=== PATIENT | female | born 1970 | race Caucasian/White ===

== ENCOUNTER 2017-02-08 12:13 | Inpatient (IN) | payer OTHER ==
[~2017-02-08] VITALS: Ht 170.2 cm; Wt 91.0 kg
[~2017-02-08 12:13] MED LIST: MULT1TAB46; OMEP20TA39 PO; ONDA1TAB16 PO; PERC10TA27 PO
[2017-02-08 12:18] VITALS: BP 163/75; PULSE 77; RESP 18; TEMP 98.2; O2SAT 98
--- NOTE | 2017-02-08 12:21 | PD ---
Physical Exam Date Seen by Provider: Feb 08, 2017 Time Seen by Provider: 12:17 Narrative Pt is a 46 year old female presenting to the ED for evaluation epigastric abd pain radiates to her chest and back. Pt reports her pain as a 9/10. Pain is accompanied by nausea and vomiting. Symptoms started at 1300 yesterday. Similar complaint a few months ago and was evaluated in the ED, pt states she had a mild ileus at that time. She reports regular bowel movements. Pt denies any fevers, chills. VSS, awaiting bed placement. MDM Supervised Visit with AIDEE: Kathrin Persaud Feb 08, 2017 12:21
--- NOTE | 2017-02-08 12:42 | PD ---
HPI Chief Complaint: Abdominal Pain Time Seen by Provider: 12:42 Travel History International Travel<30 days: No Contact w/Intl Traveler<30days: No Traveled to known affect area: No History of Present Illness HPI 46-year-old female with history of CAD, gastric bypass in 2010, iron deficiency , anemia, resents to the the emergency department today for evaluation of epigastric pain that radiates to her back. Patient states this started yesterday after eating lunch. It has persisted. She has history of cholecystectomy. She has been nauseous with vomiting. Has had loose stool. No hematochezia or hematemesis. No fever or chills. Patient denies any chest pain or shortness of breath. Cannot think of any alleviating or exacerbating factors. She has no other symptoms to report at this time. PFSH Past Medical History Anemia: Yes (LOW IRON) Blood Disorders: No Cancer: No Cardiac Catheterization: Yes (X 1 - NO STENTS PLACED) Cardiovascular Problems: Yes (CARDIAC CATH) Diabetes: No Diminished Hearing: No Endocrine: No Gastrointestinal Disorders: No Glaucoma: No Genitourinary: No Hepatitis: No Hiatal Hernia: No Hypertension: Yes (HISTORY OF) Immune Disorder: No Implanted Vascular Access Dvce: No Musculoskeletal: Yes (HERNIATED DISK LUMBAR) Neurologic: No Psychiatric: No Reproductive: No Respiratory: No Immunizations Current: No Thyroid Disease: No ?: Not : 4 Para: 4 Miscarriage: 0 : 0 Tubal Ligation: Yes Past Surgical History Abdominal Surgery: Yes ( GASTRIC BYPASS 11/03/2010) AICD: No Body Medical Devices: NONE Cardiac Surgery: Yes (CARDIAC CATH 2013 WITHIN NORMAL LIMITS) Section: Yes (X 2) Cholecystectomy: Yes (03/03/11) Ear Surgery: No Endocrine Surgery: No Eye Surgery: No Genitourinary Surgery: No Gynecologic Surgery: Yes (C SECTION X 2, TUBAL LIG.) Hysterectomy: Yes Joint Replacement: No Neurologic Surgery: No Oral Surgery: No Pacemaker: No Thoracic Surgery: No Other Surgery: Yes (GASTRIC BYPASS 11/03/2010) Social History Alcohol Use: No Tobacco Use: No Substance Use: No Allergies-Medications (Allergen,Severity, Reaction): Coded Allergies: No Known Allergies (Unverified , 02/08/17) Reported Meds & Prescriptions Reported Meds & Active Scripts Active Reported Multiple Vitamin 1 Tab 1 Tab PO DAILY Review of Systems Except as stated in HPI: all other systems reviewed are Neg Physical Exam Narrative GENERAL: Well-nourished female patient, appears uncomfortable but in no acute distress SKIN: Focused skin assessment warm/dry. HEAD: Atraumatic. Normocephalic. EYES: Pupils equal and round. No scleral icterus. No injection or drainage. ENT: No nasal bleeding or discharge. Mucous membranes pink and moist. NECK: Trachea midline. No JVD. CARDIOVASCULAR: Regular rate and rhythm. No murmur appreciated. RESPIRATORY: No accessory muscle use. Clear to auscultation. Breath sounds equal bilaterally. GASTROINTESTINAL: Abdomen soft, non-tender, nondistended. Hepatic and splenic margins not palpable. MUSCULOSKELETAL: No obvious deformities. No clubbing. No cyanosis. No edema. NEUROLOGICAL: Awake and alert. No obvious cranial nerve deficits. Motor grossly within normal limits. Normal speech. PSYCHIATRIC: Appropriate mood and affect; insight and judgment normal. Data Data Last Documented VS Vital Signs Date Time Temp Pulse Resp B/P Pulse Ox O2 Delivery O2 Flow Rate FiO2 02/08/17 15:05 70 18 155/94 98 Room Air 02/08/17 12:18 98.2 Orders Complete Blood Count With Diff (02/08/17 12:52) Comprehensive Metabolic Panel (02/08/17 12:52) Lipase (02/08/17 12:52) Prothrombin Time / Inr (Pt) (02/08/17 12:52) Act Partial Throm Time (Ptt) (02/08/17 12:52) Urinalysis - C+S If Indicated (02/08/17 12:52) Ct Abd/Pel W Iv Contrast(Rout) (02/08/17 12:52) Iv Access Insert/Monitor (02/08/17 12:52) Ecg Monitoring (02/08/17 12:52) Oximetry (02/08/17 12:52) Ondansetron Inj (Zofran Inj) (02/08/17 13:00) Pantoprazole Inj (Protonix Inj) (02/08/17 13:00) Sodium Chlor 0.9% 1000 Ml Inj (Ns 1000 M (02/08/17 12:52) Sodium Chloride 0.9% Flush (Ns Flush) (02/08/17 13:00) Electrocardiogram (02/08/17 12:52) Al-Mag Hy-Si 40-40-4 Mg/Ml Liq (Mag-Al P (02/08/17 13:00) Lidocaine 2% Viscous (Xylocaine 2% Visco (02/08/17 13:00) Iohexol 350 Inj (Omnipaque 350 Inj) (02/08/17 14:04) Ckmb (Isoenzyme) Profile (02/08/17 13:15) Troponin I (02/08/17 13:15) Morphine Inj (Morphine Inj) (02/08/17 15:00) Admit Order (Ed Use Only) (02/08/17 15:27) Labs Laboratory Tests Test 02/08/17 02/08/17 13:15 14:00 White Blood Count 6.3 TH/MM3 Red Blood Count 4.10 MIL/MM3 Hemoglobin 11.9 GM/DL Hematocrit 34.8 % Mean Corpuscular Volume 84.7 FL Mean Corpuscular Hemoglobin 28.9 PG Mean Corpuscular Hemoglobin 34.1 % Concent Red Cell Distribution Width 14.0 % Platelet Count 305 TH/MM3 Mean Platelet Volume 7.3 FL Neutrophils (%) (Auto) 64.6 % Lymphocytes (%) (Auto) 27.2 % Monocytes (%) (Auto) 6.8 % Eosinophils (%) (Auto) 0.9 % Basophils (%) (Auto) 0.5 % Neutrophils # (Auto) 4.1 TH/MM3 Lymphocytes # (Auto) 1.7 TH/MM3 Monocytes # (Auto) 0.4 TH/MM3 Eosinophils # (Auto) 0.1 TH/MM3 Basophils # (Auto) 0.0 TH/MM3 CBC Comment DIFF FINAL Differential Comment Prothrombin Time 11.0 SEC Prothromb Time International 1.0 RATIO Ratio Activated Partial 25.8 SEC Thromboplast Time Sodium Level 142 MEQ/L Potassium Level 3.5 MEQ/L Chloride Level 107 MEQ/L Carbon Dioxide Level 26.8 MEQ/L Anion Gap 8 MEQ/L Blood Urea Nitrogen 12 MG/DL Creatinine 0.67 MG/DL Estimat Glomerular Filtration 95 ML/MIN Rate Random Glucose 99 MG/DL Calcium Level 8.7 MG/DL Total Bilirubin 0.2 MG/DL Aspartate Amino Transf 25 U/L (AST/SGOT) Alanine Aminotransferase 45 U/L (ALT/SGPT) Alkaline Phosphatase 68 U/L Total Creatine Kinase 64 U/L Troponin I LESS THAN 0.02 NG/ML Total Protein 6.7 GM/DL Albumin 3.4 GM/DL Lipase 196 U/L Urine Color LIGHT-YELLOW Urine Turbidity CLEAR Urine pH 7.0 Urine Specific [place] 1.007 Urine Protein NEG mg/dL Urine Glucose (UA) NEG mg/dL Urine Ketones NEG mg/dL Urine Occult Blood NEG Urine Nitrite NEG Urine Bilirubin NEG Urine Urobilinogen LESS THAN 2.0 MG/DL Urine Leukocyte Esterase NEG Urine WBC 1 /hpf Urine Squamous Epithelial 2 /hpf Cells Urine Bacteria RARE /hpf Microscopic Urinalysis Comment CULT NOT INDICATED MDM Medical Decision Making Medical Screen Exam Complete: Yes Emergency Medical Condition: Yes Medical Record Reviewed: Yes Differential Diagnosis Gastritis versus ileus versus pancreatitis versus PUD versus ACS versus chest wall pain Narrative Course 46-year-old female presents to the emergency department for evaluation of epigastric pain. Patient does appear uncomfortable. She has no abdominal tenderness to palpation. No guarding. Cardiac workup is added in addition to abdominal pain workup. She is given GI cocktail and pain control. 1400 Upon reassessment pt reports mild improvement in her pain but is requesting to my attending additional pain control. 1410 A call has been placed to Dr. Rosen for further recommendation of care. [address] Rosen- he will come to the ED and evaluate the pt. 1515 Dr. Rosen is at bedside. 1525 Pt will be admitted observation to Dr. Rosen. Plan for endoscopy Diagnosis Primary Impression: Intractable abdominal pain Additional Impressions: Nausea & vomiting Qualified Code: R11.2 - Non-intractable vomiting with nausea, unspecified vomiting type History of gastric bypass Admitting Information Admitting Physician Requests: Observation Condition: Stable Hilda Marques Feb 08, 2017 12:42
[2017-02-08] MEDS ORDERED: SODIUM CHLOR 0.9% 1000 ML INJ 1,000 ML IV SCH (12:52)
[2017-02-08] MEDS ORDERED: ONDANSETRON HCL 4 MG/2 ML VIAL IVP ONE (13:00)
[2017-02-08] MEDS ORDERED: PANTOPRAZOLE SODIUM 40 MG VIAL IVP ONE (13:00)
[2017-02-08] MEDS ORDERED: LIDOCAINE VISCOUS 2% SOLN 15 ML UDC PO ONE (13:00)
[2017-02-08] MEDS ORDERED: SODIUM CHLORIDE 0.9% FLUSH 10 ML FLUSH IV FLUSH PRN ×2 (13:00→17:00)
[2017-02-08] MEDS ORDERED: ALUMINUM/MAGNESIUM/SIMETH 30 ML CUP PO ONE (13:00)
[2017-02-08] MEDS ORDERED: MULTTAB67 PO (13:19)
[2017-02-08 13:25] LABS: AUTOMATED NEUTROPHIL # 4.1 TH/MM3 (1.8-7.7); BASOPHIL % 0.5 % (0.0-2.0); EOSINOPHIL # 0.1 TH/MM3 (0-0.4); EOSINOPHIL % 0.9 % (0.0-4.0); HEMATOCRIT 34.8 % (35.0-46.0); HEMO FLAGS DIFF FINAL; LYMPH % 27.2 % (9.0-44.0); LYMPHOCYTE # 1.7 TH/MM3 (1.0-4.8); MEAN CELL VOLUME 84.7 FL (80.0-100.0); MEAN CORPUSCULAR HEMOGLOBIN 28.9 PG (27.0-34.0); MEAN CORPUSCULAR HGB CONC 34.1 % (32.0-36.0); MONO % 6.8 % (0.0-8.0); NEUT % 64.6 % (16.0-70.0); PLATELET COUNT 305 TH/MM3 (150-450); WHITE BLOOD COUNT 6.3 TH/MM3 (4.0-11.0)
[2017-02-08 13:35] LABS: APTT (PATIENT) 25.8 SEC (24.3-30.1)
[2017-02-08 13:39] LABS: ANION GAP 8 MEQ/L (5-15); AST (GOT) 25 U/L (15-37); BICARBONATE 26.8 MEQ/L (21.0-32.0); BLOOD UREA NITROGEN 12 MG/DL (7-18); CHLORIDE 107 MEQ/L (98-107); GLOMERULAR FILTRATION RATE 95 ML/MIN (>89); POTASSIUM 3.5 MEQ/L (3.5-5.1); SODIUM (NA) 142 MEQ/L (136-145)
[2017-02-08 13:43] LABS: ALKALINE PHOSPHATASE 68 U/L (45-117); ALT (GPT) 45 U/L (10-53); TOTAL BILIRUBIN ADULT 0.2 MG/DL (0.2-1.0)
[2017-02-08] MEDS ORDERED: IOHEXOL 350 MG/ML 10 ML VIAL (for RAD DIAG) IV ONE (14:04)
--- NOTE | 2017-02-08 14:17 | RADRPT ---
EXAM DATE/TIME: 02/08/2017 13:57 [facility] COMPARISON: CT ABDOMEN & PELVIS W CONTRAST, March 14, 2016, 16:42. INDICATIONS : Upper diffuse abdomen pain for the last two days. IV CONTRAST: 92 cc Omnipaque 350 (iohexol) IV ORAL CONTRAST: No oral contrast ingested. RADIATION DOSE: 12.51 CTDIvol (mGy) MEDICAL HISTORY : Cardiovascular disease. Hypertension. SURGICAL HISTORY : Tubal ligation. Hysterectomy.Gastric bypass. ENCOUNTER: Initial ACUITY: 2 days PAIN SCALE: 8/10 LOCATION: Bilateral upper quadrant TECHNIQUE: Volumetric scanning of the abdomen and pelvis was performed. Using automated exposure control and ad justment of the mA and/or kV according to patient size, radiation dose was kept as low as reasonably achievable to obtain optimal diagnostic quality images. FINDINGS: LOWER LUNGS: The visualized lower lungs are clear. LIVER: Homogeneous density without lesion. There is no dilation of the biliary tree. Status post cholecyste ctomy. SPLEEN: Normal size without lesion. PANCREAS: Within normal limits. KIDNEYS: Normal in size and shape. There is no mass, stone or hydronephrosis. ADRENAL GLANDS: Degenerative versus stable in appearance with mild thickening and nodularity on the left. VASCULAR: There is no aortic aneurysm. BOWEL/MESENTERY: There are postoperative changes status post gastric surgery. There are multiple loops of nondilated a ir-containing small bowel with multiple small air-fluid levels. Gas and stool is noted segmentally in the colon. There is a normal appendix. There is no free air or fluid. No oral contrast was given. ABDOMINAL WALL: Within normal limits. RETROPERITONEUM: There is no lymphadenopathy. BLADDER: No wall thickening or mass. REPRODUCTIVE: Within normal limits. INGUINAL: There is no lymphadenopathy or hernia. MUSCULOSKELETAL: Within normal limits for patient age. CONCLUSION: 1. Nonspecific bowel gas pattern which may represent ileus or gastroenteritis. 2. Stable appearance the adrenal glands with nodular thickening on the left. 3. Status post gastric surgery and cholecystectomy. Cameron Dominguez MD on February 08, 2017 at 14:12 Board Certified Radiologist. This report was verified electronically.
[2017-02-08 14:28] LABS: CREATINE KINASE 64 U/L (26-192)
[2017-02-08 14:31] LABS: BACTERIA, URINE RARE /hpf; BLOOD, URINE NEG (NEG); COMMENT (UR) CULT NOT INDICATED; CULTURE IF INDICATED CULT NOT INDICATED; GLUCOSE,URINE NEG (NEG); KETONE, URINE NEG (NEG); NITRITE,URINE NEG (NEG); SQUAMOUS EPITHELIAL CELL URINE 2 /hpf (0-5); URINE COLOR LIGHT-YELLOW (YELLW/STRAW)
[2017-02-08] MEDS ORDERED: MORPHINE SULFATE 4 MG/ML INJ IV PUSH ONE (15:00)
[2017-02-08 15:05] VITALS: BP 155/94; PULSE 70; RESP 18; O2SAT 98
--- NOTE | 2017-02-08 16:32 | PD ---
Data Data Last Documented VS Vital Signs Date Time Temp Pulse Resp B/P Pulse Ox O2 Delivery O2 Flow Rate FiO2 02/08/17 15:14 20 02/08/17 15:05 70 155/94 98 Room Air 02/08/17 12:18 98.2 Orders Complete Blood Count With Diff (02/08/17 12:52) Comprehensive Metabolic Panel (02/08/17 12:52) Lipase (02/08/17 12:52) Prothrombin Time / Inr (Pt) (02/08/17 12:52) Act Partial Throm Time (Ptt) (02/08/17 12:52) Urinalysis - C+S If Indicated (02/08/17 12:52) Ct Abd/Pel W Iv Contrast(Rout) (02/08/17 12:52) Iv Access Insert/Monitor (02/08/17 12:52) Ecg Monitoring (02/08/17 12:52) Oximetry (02/08/17 12:52) Ondansetron Inj (Zofran Inj) (02/08/17 13:00) Pantoprazole Inj (Protonix Inj) (02/08/17 13:00) Sodium Chlor 0.9% 1000 Ml Inj (Ns 1000 M (02/08/17 12:52) Sodium Chloride 0.9% Flush (Ns Flush) (02/08/17 13:00) Electrocardiogram (02/08/17 12:52) Al-Mag Hy-Si 40-40-4 Mg/Ml Liq (Mag-Al P (02/08/17 13:00) Lidocaine 2% Viscous (Xylocaine 2% Visco (02/08/17 13:00) Iohexol 350 Inj (Omnipaque 350 Inj) (02/08/17 14:04) Ckmb (Isoenzyme) Profile (02/08/17 13:15) Troponin I (02/08/17 13:15) Morphine Inj (Morphine Inj) (02/08/17 15:00) Admit Order (Ed Use Only) (02/08/17 15:27) Labs Laboratory Tests Test 02/08/17 02/08/17 13:15 14:00 White Blood Count 6.3 TH/MM3 Red Blood Count 4.10 MIL/MM3 Hemoglobin 11.9 GM/DL Hematocrit 34.8 % Mean Corpuscular Volume 84.7 FL Mean Corpuscular Hemoglobin 28.9 PG Mean Corpuscular Hemoglobin 34.1 % Concent Red Cell Distribution Width 14.0 % Platelet Count 305 TH/MM3 Mean Platelet Volume 7.3 FL Neutrophils (%) (Auto) 64.6 % Lymphocytes (%) (Auto) 27.2 % Monocytes (%) (Auto) 6.8 % Eosinophils (%) (Auto) 0.9 % Basophils (%) (Auto) 0.5 % Neutrophils # (Auto) 4.1 TH/MM3 Lymphocytes # (Auto) 1.7 TH/MM3 Monocytes # (Auto) 0.4 TH/MM3 Eosinophils # (Auto) 0.1 TH/MM3 Basophils # (Auto) 0.0 TH/MM3 CBC Comment DIFF FINAL Differential Comment Prothrombin Time 11.0 SEC Prothromb Time International 1.0 RATIO Ratio Activated Partial 25.8 SEC Thromboplast Time Sodium Level 142 MEQ/L Potassium Level 3.5 MEQ/L Chloride Level 107 MEQ/L Carbon Dioxide Level 26.8 MEQ/L Anion Gap 8 MEQ/L Blood Urea Nitrogen 12 MG/DL Creatinine 0.67 MG/DL Estimat Glomerular Filtration 95 ML/MIN Rate Random Glucose 99 MG/DL Calcium Level 8.7 MG/DL Total Bilirubin 0.2 MG/DL Aspartate Amino Transf 25 U/L (AST/SGOT) Alanine Aminotransferase 45 U/L (ALT/SGPT) Alkaline Phosphatase 68 U/L Total Creatine Kinase 64 U/L Troponin I LESS THAN 0.02 NG/ML Total Protein 6.7 GM/DL Albumin 3.4 GM/DL Lipase 196 U/L Urine Color LIGHT-YELLOW Urine Turbidity CLEAR Urine pH 7.0 Urine Specific [place] 1.007 Urine Protein NEG mg/dL Urine Glucose (UA) NEG mg/dL Urine Ketones NEG mg/dL Urine Occult Blood NEG Urine Nitrite NEG Urine Bilirubin NEG Urine Urobilinogen LESS THAN 2.0 MG/DL Urine Leukocyte Esterase NEG Urine WBC 1 /hpf Urine Squamous Epithelial 2 /hpf Cells Urine Bacteria RARE /hpf Microscopic Urinalysis Comment CULT NOT INDICATED [facility] Supervised Visit with AIDEE: Yes Narrative Course The history, exam, and medical decision-making in the associated midlevel provider note were completed with my assistance. I reviewed and agree with the findings presented. I attest that I had a [id number] encounter with the patient on the same day, and personally performed and documented my assessment and findings in the medical record. *My assessment and Findings: This is a 46-year-old female who presents to the emergency department with epigastric discomfort with nausea and vomiting. Her history is consistent with possible gastric ulcer. She has a history of gastric bypass in the past by Dr. Rosen. Labs are reassuring and CT imaging demonstrates a possible ileus. Patient was seen by Dr. Rosen in the ER and will be taken for endoscopy Diagnosis Primary Impression: Intractable abdominal pain Additional Impressions: History of gastric bypass Nausea & vomiting Qualified Code: R11.2 - Non-intractable vomiting with nausea, unspecified vomiting type Condition: Stable Kacie Bruno MD Feb 08, 2017 16:32
--- NOTE | 2017-02-08 16:42 | GIPROC ---
[facility] [address] [facility]. [facility], [address] EGD PROCEDURE REPORT EXAM DATE: 02/08/2017 PATIENT NAME: Sanjana Pham MR #: [id number] BIRTHDATE: 1970 ATTENDING: Demetrius Vogt MD ORDER #: [id number] [employer] SUPERVISOR: Lucila Cannon Pat STATUS: inpatient INDICATIONS: The patient is a 46 yr old female here for an EGD due to epigastric abdominal pain and heartburn hx of ry gastric bypass PROCEDURE PERFORMED: EGD, diagnostic MEDICATIONS: None and Per Anesthesia. TOPICAL ANESTHETIC: none CONSENT: The patient understands the risks and benefits of the procedure and understands that these risks include, but are not limited to: sedation, allergic reaction, infection, perforation and/or bleeding. Alternative means of evaluation and treatment include, among others: physical exam, x-rays, and/or surgical intervention. The patient elects to proceed with this endoscopic procedure. medical equipment was checked for proper function. Hand hygiene and appropriate measures for infection prevention was taken. After the risks, benefits and alternatives of the procedure were thoroughly explained, Informed consent was verified, confirmed and timeout was successfully executed by the treatment team. The patient was anesthetized with topical anesthesia and the Pentax [id number] endoscope was introduced through the mouth and advanced to the anastomosis. No stricture noted. examination of blind limb and jejunal limb observed otherwise normal. Retroflexion was not performed The gastroscope was then slowly withdrawn and removed. Ulcer just distal to G-J anastomosis. ADVERSE EVENTS: There were no complications. IMPRESSIONS: 1. Ulcer just distal to G-J anastomosis 2. Retroflexion was not performed RECOMMENDATIONS: 1. Start PPI 2. Carafate avoid NSAID PATIENT CONDITION: fair DISPOSITION: Observation REPEAT EXAM: NONE Demetrius Vogt MD eSigned: Demetrius Vogt MD 02/08/2017 4:42 PM cc: Ok Rosen M.D.
[2017-02-08] MEDS ORDERED: PROPOFOL 200 MG/20 ML AMP IV ONE (16:45)
[2017-02-08] MEDS ORDERED: MORPHINE SULFATE 4 MG/ML INJ IV PUSH PRN (18:30)
[2017-02-08] MEDS: METOCLOPRAMIDE HCL 10 MG/2 ML VIAL IV PRN (18:32)
[2017-02-08] MEDS: SODIUM CHLOR 0.9% 1000 ML INJ 1,000 ML IV SCH (18:33)
[2017-02-08] MEDS: MORPHINE SULFATE 4 MG/ML INJ IV PUSH PRN (18:54)
[2017-02-08 20:00] VITALS: BP 106/62; PULSE 75; RESP 20; TEMP 97.7; O2SAT 98
[2017-02-08] MEDS: PANTOPRAZOLE SODIUM 40 MG VIAL IV SCH (21:08)
[2017-02-08] MEDS: SUCRALFATE 1 GM/10 ML CUP PO SCH (21:08)
[2017-02-08] MEDS: SODIUM CHLORIDE 0.9% FLUSH 10 ML FLUSH IV FLUSH SCH (21:14)
--- NOTE | 2017-02-08 21:36 | MB ---
cc: RADU MONTAÑO MD DATE OF CONSULTATION 02/08/17 CHIEF COMPLAINT/REASON FOR CONSULTATION Epigastric abdominal pain. HISTORY OF PRESENT ILLNESS The patient is a 46-year-old female who presents with several medical issues including morbid obesity status post gastric bypass in 2010. She presented with complaint of acute onset of epigastric abdominal pain. She stated the pain started around 3:00 p.m. yesterday and continued to get worse. The pain was sharp with some radiation to the lower abdomen. It was 8/10 currently is 6/10. She states was worse with vomiting and better with lying still. She did have associated several episodes of nausea and vomiting. She denied any fevers or chills or diarrhea or constipation. She has never had symptoms this severe in the past. She has had a gastric bypass and has done relatively well as a result until about this time. She further denies smoking or NSAID usage. PAST MEDICAL HISTORY 1. Coronary artery disease, 2. Iron deficiency anemia 3. Morbid obesity 4. Lumbar disk herniation 5. Hypertension. PAST SURGICAL HISTORY 1. Gastric bypass October 2010 2. Cardiac catheterization 3. x2 4. Cholecystectomy, 5. Hysterectomy. SOCIAL HISTORY Denies smoking, ETOH or IVDA. ALLERGIES NO KNOWN DRUG ALLERGIES. MEDICATIONS See EMR. FAMILY HISTORY Denies diabetes or hypertension. REVIEW OF SYSTEMS GENERAL: The patient denies headache or pain. HEENT: Denies eye pain, ear pain. NECK: Denies swelling or pain. RESPIRATORY: Denies cough or wheeze. CARDIAC: Denies palpitation, history of coronary artery disease. ABDOMEN: Complained of nausea, vomiting, abdominal pain EXTREMITIES: Denies arthralgia, myalgia. PSYCHIATRIC: Denies change in mood and affect. INTEGUMENT: Denies obvious skin masses or lesions. : Denies dysuria, hematuria. PHYSICAL EXAMINATION GENERAL: The patient in no acute distress. VITAL SIGNS: Temperature 98.3, pulse 70, respiration 80, blood pressure 155/94, pulse ox 98%. HEENT: PERRLA, no scleral icterus. Normocephalic, atraumatic. NECK: Supple. Trachea midline. No JVD. CARDIOVASCULAR: Regular rate and rhythm, S1-S2. RESPIRATORY: Bilateral expansion. No wheeze. ABDOMEN: Positive tenderness to palpation epigastric area. No rebound or guarding. Well-healed surgical scars. MUSCULOSKELETAL: 5/5 motor all extremities. No edema. NEUROLOGIC: Alert and oriented times four. PSYCHIATRIC: Appropriate mood and affect. LABORATORY AND DIAGNOSTIC DATA WBC 6.3, hemoglobin 11.9, hematocrit 34.8, platelets 305. Sodium of 142, potassium 2.5, chloride 107, BUN 12, creatinine 0.67, AST 25, ALT 45, alk phos 68, lipase 196, albumin 3.4, INR one. IMAGING STUDIES CT reviewed by myself. Possible mild ileus, gastric bypass surgery. No evidence of dilation. No remnant, no evidence of obstruction. ASSESSMENT The patient is a 46-year-old female, history of morbid obesity status post got gastric bypass presents with epigastric pain. PLAN Clinical, radiology and laboratory workup, patient with above-named complaints including severe epigastric pain with radiation to the back. The patient has history of gastric bypass. Pain concerning for gastric jejunal ulcer. We will take the patient to the endoscopy GI suite for EGD and evaluation of gastric pouch. This was discussed with the patient in detail who states understanding and agrees. Risks, benefits, alternatives explained to patient. Thank you for your consultation. MD GI[facility] [place]/ /9:03 PM /9:17 PM
[2017-02-09] VITALS (7 sets, daily range): BP systolic 102–115; BP diastolic 59–70; PULSE 59–68; RESP 16–20; TEMP 96.5–98.3; O2SAT 91–99
[2017-02-09] MEDS: METOCLOPRAMIDE HCL 10 MG/2 ML VIAL IV PRN ×4 (00:03→21:52)
[2017-02-09] MEDS: MORPHINE SULFATE 4 MG/ML INJ IV PUSH PRN ×6 (00:03→21:52)
[2017-02-09] MEDS: SODIUM CHLOR 0.9% 1000 ML INJ 1,000 ML IV SCH ×3 (00:47→16:43)
[2017-02-09 05:30] LABS: AUTOMATED NEUTROPHIL # 2.1 TH/MM3 (1.8-7.7); BASOPHIL % 0.8 % (0.0-2.0); EOSINOPHIL # 0.1 TH/MM3 (0-0.4); EOSINOPHIL % 1.4 % (0.0-4.0); HEMATOCRIT 30.8 % (35.0-46.0); HEMO FLAGS DIFF FINAL; LYMPH % 44.1 % (9.0-44.0); MEAN CELL VOLUME 86.1 FL (80.0-100.0); MEAN CORPUSCULAR HEMOGLOBIN 28.1 PG (27.0-34.0); MEAN CORPUSCULAR HGB CONC 32.6 % (32.0-36.0); NEUT % 44.7 % (16.0-70.0); PLATELET COUNT 222 TH/MM3 (150-450); RED BLOOD COUNT 3.58 MIL/MM3 (4.00-5.30); WHITE BLOOD COUNT 4.6 TH/MM3 (4.0-11.0)
[2017-02-09] MEDS: SUCRALFATE 1 GM/10 ML CUP PO SCH ×4 (06:54→20:19)
[2017-02-09] MEDS: PANTOPRAZOLE SODIUM 40 MG VIAL IV SCH ×2 (08:33→20:19)
[2017-02-09] MEDS: SODIUM CHLORIDE 0.9% FLUSH 10 ML FLUSH IV FLUSH SCH ×2 (08:33→20:20)
--- NOTE | 2017-02-09 10:49 | EKG ---
Date Performed: 02/08/2017 Time Performed: 13:06:27 PTAGE: 46 years EKG: Sinus rhythm INCOMPLETE RIGHT BUNDLE BRANCH BLOCK BORDERLINE ECG PREVIOUS TRACING : 09/04/2015 11.08 Compared to prior tracing no significant change DOCTOR: Praveena Larsen Interpretating Date/Time 02/09/2017 10:48:51
[2017-02-09] MEDS ORDERED: PROMETHAZINE HCL 25 MG SUPP RECTAL PRN (12:45)
--- NOTE | 2017-02-09 12:56 | HHI.PR ---
Subjective Subjective Notes 46-year-old female with history of CAD, gastric bypass in 2010, iron deficiency , anemia. Still complains of burning pain to the epigastric region as well as a significant amount of nausea despite medication. No hematochezia or hematemesis. No fever or chills. Patient denies any chest pain or shortness of breath. Objective Vitals/I&O Vital Signs Date Time Temp Pulse Resp B/P Pulse Ox O2 Delivery O2 Flow Rate FiO2 02/09/17 12:00 96.5 65 17 115/70 98 02/08/17 15:05 Room Air Labs Laboratory Tests Test 02/08/17 02/08/17 02/09/17 13:15 14:00 04:25 White Blood Count 6.3 4.6 Red Blood Count 4.10 3.58 Hemoglobin 11.9 10.0 Hematocrit 34.8 30.8 Mean Corpuscular Volume 84.7 86.1 Mean Corpuscular Hemoglobin 28.9 28.1 Mean Corpuscular Hemoglobin 34.1 32.6 Concent Red Cell Distribution Width 14.0 14.0 Platelet Count 305 222 Mean Platelet Volume 7.3 7.7 Neutrophils (%) (Auto) 64.6 44.7 Lymphocytes (%) (Auto) 27.2 44.1 Monocytes (%) (Auto) 6.8 9.0 Eosinophils (%) (Auto) 0.9 1.4 Basophils (%) (Auto) 0.5 0.8 Neutrophils # (Auto) 4.1 2.1 Lymphocytes # (Auto) 1.7 2.0 Monocytes # (Auto) 0.4 0.4 Eosinophils # (Auto) 0.1 0.1 Basophils # (Auto) 0.0 0.0 CBC Comment DIFF FINAL DIFF FINAL Differential Comment Prothrombin Time 11.0 Prothromb Time International 1.0 Ratio Activated Partial 25.8 Thromboplast Time Sodium Level 142 Potassium Level 3.5 Chloride Level 107 Carbon Dioxide Level 26.8 Anion Gap 8 Blood Urea Nitrogen 12 Creatinine 0.67 Estimat Glomerular Filtration 95 Rate Random Glucose 99 Calcium Level 8.7 Total Bilirubin 0.2 Aspartate Amino Transf 25 (AST/SGOT) Alanine Aminotransferase 45 (ALT/SGPT) Alkaline Phosphatase 68 Total Creatine Kinase 64 Troponin I LESS THAN 0.02 Total Protein 6.7 Albumin 3.4 Lipase 196 Urine Color LIGHT-YELLOW Urine Turbidity CLEAR Urine pH 7.0 Urine Specific [place] 1.007 Urine Protein NEG Urine Glucose (UA) NEG Urine Ketones NEG Urine Occult Blood NEG Urine Nitrite NEG Urine Bilirubin NEG Urine Urobilinogen LESS THAN 2.0 Urine Leukocyte Esterase NEG Urine WBC 1 Urine Squamous Epithelial 2 Cells Urine Bacteria RARE Microscopic Urinalysis Comment CULT NOT INDICATED Radiology Last Impressions Abdomen/Pelvis CT 02/08/17 1252 Signed Impressions: Service Date/Time: Wednesday, February 08, 2017 13:57 - CONCLUSION: 1. Nonspecific bowel gas pattern which may represent ileus or gastroenteritis. 2. Stable appearance the adrenal glands with nodular thickening on the left. 3. Status post gastric surgery and cholecystectomy. Cameron Dominguez MD Cardiovascular: Regular Lungs: Clear Abdomen: Non-distended Extremities: Perfused Narrative Exam Abdomen not tender to palpation, though patient does complain of continuous pain which is exacerbated with fluids A/P Assessment and Plan Continue with clears Continue with PPI and Carafate Walk halls QID Scopolamine and Phenergan supp PRN for nausea The exam, history, and the medical decision-making described in the above note were completed with the assistance of the mid-level provider. I reviewed and agree with the findings presented. I attest that I had a [id number] encounter with the patient on the same day, and personally performed and documented my assessment and findings in the medical record. Kerry Guy Feb 09, 2017 12:56 Ok Rosen MD Feb 09, 2017 13:05
[2017-02-09] MEDS ORDERED: SCOPOLAMINE 1.5 MG PATCH T-DERMAL SCH (13:00)
--- NOTE | 2017-02-09 20:53 | HHI.PR ---
Subjective Subjective Notes no acute issues, tolerating liquids, nausea better, still with epigastric pain Objective Vitals/I&O Vital Signs Date Time Temp Pulse Resp B/P Pulse Ox O2 Delivery O2 Flow Rate FiO2 02/09/17 17:47 91 21 02/09/17 16:00 98.3 68 16 108/60 02/08/17 15:05 Room Air Labs Laboratory Tests Test 02/09/17 04:25 White Blood Count 4.6 Red Blood Count 3.58 Hemoglobin 10.0 Hematocrit 30.8 Mean Corpuscular Volume 86.1 Mean Corpuscular Hemoglobin 28.1 Mean Corpuscular Hemoglobin 32.6 Concent Red Cell Distribution Width 14.0 Platelet Count 222 Mean Platelet Volume 7.7 Neutrophils (%) (Auto) 44.7 Lymphocytes (%) (Auto) 44.1 Monocytes (%) (Auto) 9.0 Eosinophils (%) (Auto) 1.4 Basophils (%) (Auto) 0.8 Neutrophils # (Auto) 2.1 Lymphocytes # (Auto) 2.0 Monocytes # (Auto) 0.4 Eosinophils # (Auto) 0.1 Basophils # (Auto) 0.0 CBC Comment DIFF FINAL Differential Comment Radiology Last Impressions Abdomen/Pelvis CT 02/08/17 1252 Signed Impressions: Service Date/Time: Wednesday, February 08, 2017 13:57 - CONCLUSION: 1. Nonspecific bowel gas pattern which may represent ileus or gastroenteritis. 2. Stable appearance the adrenal glands with nodular thickening on the left. 3. Status post gastric surgery and cholecystectomy. Cameron Dominguez MD Abdomen: Other (soft mild ttp epigatric no rebound) A/P Assessment and Plan hx RYGB gj ulcer plan c/w liquids nausea meds pain control ppi/carafate pt may need repeat EGD to assess ulcer 4-6 weeks if symptoms progress Demetrius Vogt MD Feb 09, 2017 20:53
[2017-02-10] VITALS: BP 109/66; PULSE 69; RESP 17; TEMP 97.9; O2SAT 98
[2017-02-10] MEDS: SODIUM CHLOR 0.9% 1000 ML INJ 1,000 ML IV SCH ×3 (00:47→16:47)
[2017-02-10] MEDS: MORPHINE SULFATE 4 MG/ML INJ IV PUSH PRN (03:33)
[2017-02-10] MEDS: METOCLOPRAMIDE HCL 10 MG/2 ML VIAL IV PRN ×2 (07:38→15:40)
[2017-02-10] MEDS: SUCRALFATE 1 GM/10 ML CUP PO SCH ×4 (07:41→20:17)
[2017-02-10 08:00] VITALS: BP 102/58; PULSE 71; RESP 16; TEMP 98.2; O2SAT 97
[2017-02-10] MEDS: PANTOPRAZOLE SODIUM 40 MG VIAL IV SCH ×2 (08:41→20:17)
[2017-02-10] MEDS: SODIUM CHLORIDE 0.9% FLUSH 10 ML FLUSH IV FLUSH SCH ×2 (08:41→20:17)
[2017-02-10] MEDS ORDERED: ACETAMINOPHEN 325MG/HYDROcodone 7.5MG/15ML UDC PO PRN (11:00)
[2017-02-10] MEDS ORDERED: MAGNESIUM HYDROXIDE SUSP 30 ML CUP PO PRN (11:15)
--- NOTE | 2017-02-10 11:15 | HHI.PR ---
Subjective Subjective Notes Ambulating around room, still with some nausea and epigastric pain but improved Objective Vitals/I&O Vital Signs Date Time Temp Pulse Resp B/P Pulse Ox O2 Delivery O2 Flow Rate FiO2 02/10/17 08:00 98.2 71 16 102/58 97 02/09/17 17:47 21 02/08/17 15:05 Room Air Radiology Last Impressions Abdomen/Pelvis CT 02/08/17 1252 Signed Impressions: Service Date/Time: Wednesday, February 08, 2017 13:57 - CONCLUSION: 1. Nonspecific bowel gas pattern which may represent ileus or gastroenteritis. 2. Stable appearance the adrenal glands with nodular thickening on the left. 3. Status post gastric surgery and cholecystectomy. Cameron Dominguez MD Cardiovascular: Regular Lungs: Clear Abdomen: Other (mild epigastric tenderness) Extremities: Perfused A/P Assessment and Plan Increase diet to full/thick liquids Continue with PPI and Carafate Walk halls QID Scopolamine and Phenergan supp PRN for nausea Transition to po pain meds The exam, history, and the medical decision-making described in the above note were completed with the assistance of the mid-level provider. I reviewed and agree with the findings presented. I attest that I had a [id number] encounter with the patient on the same day, and personally performed and documented my assessment and findings in the medical record. Discharge Planning D/C home most likely tomorrow Will need f/u in 10 days with Kerry Barnes [facility] Feb 10, 2017 11:15 Ok Rosen MD February 18, 2017 09:00
[2017-02-10] MEDS: ACETAMINOPHEN 325MG/HYDROcodone 7.5MG/15ML UDC PO PRN ×3 (11:34→20:17)
[2017-02-10 12:00] VITALS: BP 119/71; PULSE 61; RESP 16; TEMP 97.4; O2SAT 100
[2017-02-10 16:00] VITALS: BP 113/69; PULSE 68; RESP 16; TEMP 98.7; O2SAT 97
[2017-02-10 20:00] VITALS: BP 121/73; PULSE 73; RESP 17; TEMP 98.1; O2SAT 98
[2017-02-11] VITALS: BP 117/71; PULSE 68; RESP 17; TEMP 97.4; O2SAT 98
[2017-02-11] MEDS: ACETAMINOPHEN 325MG/HYDROcodone 7.5MG/15ML UDC PO PRN ×6 (01:22→22:20)
[2017-02-11] MEDS: SODIUM CHLOR 0.9% 1000 ML INJ 1,000 ML IV SCH ×3 (02:29→13:43)
[2017-02-11] MEDS: SUCRALFATE 1 GM/10 ML CUP PO SCH ×4 (05:29→20:11)
[2017-02-11] MEDS: METOCLOPRAMIDE HCL 10 MG/2 ML VIAL IV PRN ×3 (05:30→22:19)
[2017-02-11] MEDS: PANTOPRAZOLE SODIUM 40 MG VIAL IV SCH ×2 (07:41→20:11)
[2017-02-11] MEDS: SODIUM CHLORIDE 0.9% FLUSH 10 ML FLUSH IV FLUSH SCH ×2 (07:42→20:11)
[2017-02-11 08:00] VITALS: BP 110/66; PULSE 69; RESP 14; TEMP 97.3; O2SAT 95
--- NOTE | 2017-02-11 09:39 | HHI.PR ---
Subjective Subjective Notes Sitting up in bed. Still complaining of some epigastric pain that is exacerbated with eating. Not tolerating full liquid diet. Still requiring pain medication Q4-5 hours Objective Vitals/I&O Vital Signs, 24 Hour Date Time Temp Pulse Resp B/P Pulse Ox O2 Delivery O2 Flow Rate FiO2 02/11/17 08:00 97.3 69 14 110/66 95 02/11/17 00:00 97.4 68 17 117/71 98 02/10/17 20:00 98.1 73 17 121/73 98 02/10/17 16:00 98.7 68 16 113/69 97 02/10/17 12:00 97.4 61 16 119/71 100 Allergies Coded Allergies No Known Allergies (Unverified02/08/17) Intake/Outtake 02/11/17 02/11/17 11:00 23:00 Intake Total 1190 ml Balance 1190 ml Orders-Kerry Guy Procedure Category Date Status Time Diet Full Liquid DIET 02/10/17 Transmitted Lunch Magnesium Hydroxide MED 02/10/17 In Process Liq (Milk Of Magnesi 11:15 Active Scripts Active Reported Multiple Vitamin 1 Tab 1 Tab PO DAILY Vital Signs Date Time Temp Pulse Resp B/P Pulse Ox O2 Delivery O2 Flow Rate FiO2 02/11/17 08:00 97.3 69 14 110/66 95 02/09/17 17:47 21 02/08/17 15:05 Room Air Radiology Last Impressions Abdomen/Pelvis CT 02/08/17 1252 Signed Impressions: Service Date/Time: Wednesday, February 08, 2017 13:57 - CONCLUSION: 1. Nonspecific bowel gas pattern which may represent ileus or gastroenteritis. 2. Stable appearance the adrenal glands with nodular thickening on the left. 3. Status post gastric surgery and cholecystectomy. Cameron Dominguez MD A/P Assessment and Plan Increase diet to full/thick liquids as tolerated Continue with PPI and Carafate Walk halls QID Scopolamine and Phenergan supp PRN for nausea The exam, history, and the medical decision-making described in the above note were completed with the assistance of the mid-level provider. I reviewed and agree with the findings presented. I attest that I had a [id number] encounter with the patient on the same day, and personally performed and documented my assessment and findings in the medical record. Discharge Planning Will keep one more day, hopefully D/C tomorrow [facility] Ok Rosen MD February 18, 2017 09:00
[2017-02-11 12:00] VITALS: BP 119/86; PULSE 98; RESP 20; TEMP 98.6; O2SAT 96
[2017-02-11] MEDS ORDERED: PANT40TA3 PO (12:57)
[2017-02-11] MEDS ORDERED: SUCR1S PO (12:57)
[2017-02-11] MEDS ORDERED: ONDA4TAB7 SL (12:57)
[2017-02-11 16:00] VITALS: BP 112/74; PULSE 71; RESP 18; TEMP 97.4; O2SAT 98
[2017-02-11 20:00] VITALS: BP 121/61; PULSE 77; RESP 17; TEMP 96.8; O2SAT 95
[2017-02-12] VITALS: BP 106/64; PULSE 64; RESP 17; TEMP 97.8; O2SAT 95
[2017-02-12] MEDS: SODIUM CHLOR 0.9% 1000 ML INJ 1,000 ML IV SCH ×2 (02:26→05:21)
[2017-02-12] MEDS: ACETAMINOPHEN 325MG/HYDROcodone 7.5MG/15ML UDC PO PRN ×2 (03:24→08:32)
[2017-02-12] MEDS: SUCRALFATE 1 GM/10 ML CUP PO SCH (05:21)
[2017-02-12 08:00] VITALS: BP 113/74; PULSE 110; RESP 20; TEMP 97.4; O2SAT 98
[2017-02-12] MEDS: PANTOPRAZOLE SODIUM 40 MG VIAL IV SCH (08:33)
[2017-02-12] MEDS: METOCLOPRAMIDE HCL 10 MG/2 ML VIAL IV PRN (08:33)
[2017-02-12] MEDS: SODIUM CHLORIDE 0.9% FLUSH 10 ML FLUSH IV FLUSH SCH (08:34)
[2017-02-12] MEDS ORDERED: HYDR1SOL3 PO (08:53)
--- NOTE | 2017-02-12 08:54 | HHI.PR ---
Subjective Subjective Notes No emesis since yesterday am and tolerated fulls. Pain is controlled. Objective Vitals/I&O Vital Signs Date Time Temp Pulse Resp B/P Pulse Ox O2 Delivery O2 Flow Rate FiO2 02/12/17 08:00 97.4 110 20 113/74 98 02/09/17 17:47 21 02/08/17 15:05 Room Air Radiology Last Impressions Abdomen/Pelvis CT 02/08/17 1252 Signed Impressions: Service Date/Time: Wednesday, February 08, 2017 13:57 - CONCLUSION: 1. Nonspecific bowel gas pattern which may represent ileus or gastroenteritis. 2. Stable appearance the adrenal glands with nodular thickening on the left. 3. Status post gastric surgery and cholecystectomy. Cameron Dominguez MD Narrative Exam NAD, comfortable in chair Abd: mild epigastric ttp A/P Assessment and Plan 46 yo F with marginal ulcer alan fulls, pain controlled d/c home Joel,Moshe BURCH Feb 12, 2017 08:54
[2017-02-12] MEDS ORDERED: REMOVE OLD PATCH T-DERMAL SCH (13:00)
== END 2017-02-12 10:38 | disposition home or self-care (01) | DRG 382 ==
LOC: NEPD 12:13 → NEDA 15:29 → OBSVTOIN 16:54 → N07A 18:07
PROVIDERS: ADMIT Surgery; ATTEND Surgery
PROC: 0DJ08ZZ Inspection of Upper Intestinal Tract, Via Natural or Artificial Opening Endoscopic (ICD-10-PCS; principal; 2017-02-08 16:18)
DX: K28.9 Gastrojejunal ulcer, unspecified as acute or chronic, without hemorrhage or perforation (principal); I10 Essential (primary) hypertension; D50.9 Iron deficiency anemia, unspecified; I25.10 Atherosclerotic heart disease of native coronary artery without angina pectoris; Z95.5 Presence of coronary angioplasty implant and graft; M51.26 Other intervertebral disc displacement, lumbar region; Z98.84 Bariatric surgery status
CPT/HCPCS: 74177; 80053; 81001; 82550; 83690; 84484; 85025; 85610; 85730; 93005; 96361; 96374; 96375; C9113; J2270; J2405; J2765; J7030; Q9967

== ENCOUNTER 2017-02-22 06:42 | Inpatient (IN) | payer OTHER ==
[~2017-02-22] VITALS: Ht 170.2 cm; Wt 90.0 kg
[~2017-02-22 06:42] MED LIST changes: +HYDR1SOL3 PO; -MULT1TAB46; +MULTTAB67 PO; -OMEP20TA39 PO; -ONDA1TAB16 PO; +ONDA4TAB7 SL; +PANT40TA3 PO; -PERC10TA27 PO; +SUCR1S PO
[2017-02-22] MEDS ORDERED: ceFAZolin 2 GM PREMIX 50 ML IV SCH (07:00)
[2017-02-22] MEDS ORDERED: metroNIDAZOLE 500 MG INJ 100 ML IV SCH (07:00)
[2017-02-22] MEDS ORDERED: ACETAMINOPHEN 1000 MG/100 ML VIAL IV SCH (07:00)
[2017-02-22 07:28] VITALS: BP 115/75; PULSE 72; RESP 20; TEMP 98.7; O2SAT 100
[2017-02-22] MEDS ORDERED: METOPROLOL TARTRATE 25 MG TAB PO PRN (07:30)
[2017-02-22] MEDS ORDERED: SODIUM CHLORID 0.9% 500 ML IV PRN (07:30)
[2017-02-22] MEDS ORDERED: POVIDONE IODINE 5% (ANTISEPSIS KIT) 4 APPLICATIONS EACH NARE PRN (07:30)
[2017-02-22] MEDS ORDERED: INSULIN HUMAN REGULAR 1,000 UNITS/10 ML VIAL SQ PRN (07:30)
[2017-02-22] MEDS ORDERED: CHLORHEXIDINE GLUCONATE 2 % 1 PACK (2 CLOTHS) TOPICAL PRN (07:30)
[2017-02-22] MEDS ORDERED: LACTATED RINGER'S 1000 ML IV PRN (07:30)
[2017-02-22] MEDS ORDERED: BUPIVACAINE HCL PF 0.25% 30 ML VIAL ONE (07:33)
[2017-02-22] MEDS ORDERED: ONDANSETRON HCL 4 MG/2 ML VIAL ONE (08:25)
[2017-02-22] MEDS ORDERED: MIDAZOLAM HCL 2 MG/2 ML VIAL ONE (08:25)
[2017-02-22] MEDS ORDERED: DEXAMETHASONE SOD PHOS 4 MG/ML VIAL ONE (08:25)
[2017-02-22] MEDS ORDERED: FAMOTIDINE 20 MG/2 ML VIAL ONE (08:26)
[2017-02-22] MEDS ORDERED: BUPIVACAINE/EPINEPHRINE 0.5% PF 30 ML VIAL ONE (09:56)
[2017-02-22] MEDS ORDERED: ePHEDrine/NS 25 MG/5 ML SYR IV ONE (12:00)
[2017-02-22] MEDS ORDERED: ONDANSETRON HCL 4 MG/2 ML VIAL IV PUSH ONE (12:00)
[2017-02-22] MEDS ORDERED: PROPOFOL 200 MG/20 ML AMP IV ONE (12:00)
[2017-02-22] MEDS ORDERED: LACTATED RINGER'S 1000 ML INJ 2,000 ML IV ONE (12:00)
[2017-02-22] MEDS ORDERED: MAGNESIUM HYDROXIDE SUSP 30 ML CUP PO PRN (12:00)
[2017-02-22] MEDS ORDERED: ONDANSETRON HCL 4 MG/2 ML VIAL IV PRN (12:00)
[2017-02-22] MEDS ORDERED: Post-op Orders (for Pharmacy) MISC XX ONE (12:00)
[2017-02-22] MEDS ORDERED: METOCLOPRAMIDE HCL 10 MG/2 ML VIAL IVS PRN (12:00)
[2017-02-22] MEDS ORDERED: ACETAMINOPHEN/HYDROcodone 325 MG/5 MG TAB PO PRN (12:00)
[2017-02-22] MEDS ORDERED: PHENYLEPH/NS 1000 MCG/10 ML SYR IV ONE (12:00)
[2017-02-22] MEDS ORDERED: fentaNYL CITRATE 250 MCG/5 ML AMP ONE (12:06)
[2017-02-22] MEDS ORDERED: *morphine SULFATE 8 MG/ML PERIprocedure ONLY ONE ×3 (12:08→12:37)
[2017-02-22] MEDS ORDERED: *ONDANSETRON 4 MG VIAL PERIprocedural Use ONLY ONE (12:15)
[2017-02-22] MEDS ORDERED: DO NOT ADM ANY ANTICOAGULANT DRUGS PRN (12:15)
[2017-02-22] MEDS ORDERED: *PROMETHAZINE 25 MG/ML VIAL PERIprocedural use ONLY ONE (12:24)
[2017-02-22] MEDS: SODIUM CHLOR 0.9% 1000 ML INJ 1,000 ML IV SCH ×2 (12:33→22:46)
[2017-02-22] MEDS ORDERED: *HYDROmorphone PF 1 MG VIAL PERIprocedural Use ONLY ONE ×2 (13:06→13:51)
[2017-02-22 15:00] VITALS: BP 117/75; PULSE 78; RESP 18; TEMP 97.8; O2SAT 100
[2017-02-22] MEDS: ACETAMINOPHEN/HYDROcodone 325 MG/5 MG TAB PO PRN ×2 (15:36→20:01)
[2017-02-22] MEDS: MORPHINE SULFATE 4 MG/ML INJ IV PRN ×2 (17:45→23:38)
[2017-02-22 20:00] VITALS: BP 166/97; PULSE 94; RESP 20; TEMP 98.4; O2SAT 97
[2017-02-22] MEDS: DOCUSATE SODIUM 100 MG CAP PO SCH (20:01)
[2017-02-22] MEDS: SODIUM CHLORIDE 0.9% FLUSH 10 ML FLUSH IV FLUSH SCH (20:01)
[2017-02-22 23:31] VITALS: BP 146/78; PULSE 60; RESP 19; TEMP 97.7; O2SAT 100
[2017-02-23] MEDS: ACETAMINOPHEN/HYDROcodone 325 MG/5 MG TAB PO PRN ×5 (02:49→21:42)
[2017-02-23 08:00] VITALS: BP 126/77; PULSE 78; RESP 17; TEMP 98.1; O2SAT 97
[2017-02-23] MEDS: DOCUSATE SODIUM 100 MG CAP PO SCH ×2 (08:07→19:55)
[2017-02-23] MEDS: SODIUM CHLORIDE 0.9% FLUSH 10 ML FLUSH IV FLUSH SCH ×3 (08:11→21:00)
[2017-02-23] MEDS: SODIUM CHLORIDE 0.9% FLUSH 10 ML FLUSH IV FLUSH PRN ×3 (09:34→18:16)
[2017-02-23] MEDS: MORPHINE SULFATE 4 MG/ML INJ IV PRN ×4 (09:34→19:56)
--- NOTE | 2017-02-23 11:31 | HHI.PR ---
Subjective Subjective Notes POD#1 Exploratory Ex Lap Sitting up in chair, complains of abdominal pain not associated with po intake. She describes the pain as "an ache" which is unrelieved with IV and oral pain meds. Denies nausea, is not passing flatus Objective Vitals/I&O Vital Signs Date Time Temp Pulse Resp B/P Pulse Ox O2 Delivery O2 Flow Rate FiO2 02/23/17 09:08 16 02/23/17 08:00 98.1 78 17 126/77 97 02/22/17 23:31 97.7 60 19 146/78 100 02/22/17 20:00 98.4 94 20 166/97 97 02/22/17 15:00 97.8 78 18 117/75 100 02/22/17 14:00 69 12 130/75 100 Nasal Cannula 3 02/22/17 13:30 79 13 138/70 100 Nasal Cannula 3 02/22/17 13:00 84 13 127/72 100 Nasal Cannula 3 02/22/17 12:45 88 12 122/66 100 Nasal Cannula 3 02/22/17 12:30 92 14 122/62 97 Nasal Cannula 3 02/22/17 12:15 92 18 121/60 97 Nasal Cannula 3 02/22/17 12:02 97.8 110 13 127/66 98 Nasal Cannula 4 Vital Signs Date Time Temp Pulse Resp B/P Pulse Ox O2 Delivery O2 Flow Rate FiO2 02/23/17 09:08 16 02/23/17 08:00 98.1 78 126/77 97 02/22/17 14:00 Nasal Cannula 3 Cardiovascular: Regular Lungs: Clear Abdomen: Post-op tenderness (tender to palpation LUQ, RUQ, and epigastric region. Abdomen slightly distended. Postive bowel sounds in all quadrants) Extremities: Perfused Wound Wound : Wound Location: Abdomen Appearance: Clean & Dry A/P Assessment and Plan Continue with frequent position change and ambulation Advance to full/thick liquids as tolerated Check labs in the AM if she stays another night The exam, history, and the medical decision-making described in the above note were completed with the assistance of the mid-level provider. I reviewed and agree with the findings presented. I attest that I had a [id number] encounter with the patient on the same day, and personally performed and documented my assessment and findings in the medical record. Discharge Planning D/C home possibly later today or tomorrow Kerry Guy February 23, 2017 11:31 Ok Rosen MD March 02, 2017 09:35
[2017-02-23 12:00] VITALS: BP 123/71; PULSE 70; RESP 17; TEMP 97.5; O2SAT 98
[2017-02-23] MEDS: PANTOPRAZOLE SODIUM 40 MG VIAL IV PUSH SCH ×2 (12:00→19:54)
[2017-02-23] MEDS: PANTOPRAZOLE SOD 40 MG DELAYED RELEASE TAB PO SCH ×2 (12:23→19:55)
[2017-02-23 16:00] VITALS: BP 123/78; PULSE 75; RESP 17; TEMP 96.8; O2SAT 99
[2017-02-23] MEDS: SUCRALFATE 1 GM/10 ML CUP PO SCH ×2 (16:27→19:54)
[2017-02-23] MEDS: SODIUM CHLOR 0.9% 1000 ML INJ 1,000 ML IV SCH ×3 (17:47→19:53)
[2017-02-23 20:00] VITALS: BP 135/80; PULSE 87; RESP 19; TEMP 98.2; O2SAT 97
[2017-02-24] VITALS: BP 119/68; PULSE 68; RESP 16; TEMP 97.9; O2SAT 95
[2017-02-24] MEDS: ACETAMINOPHEN/HYDROcodone 325 MG/5 MG TAB PO PRN ×7 (02:29→21:50)
[2017-02-24 04:39] LABS: BICARBONATE 28.7 MEQ/L (21.0-32.0); POTASSIUM 3.1 MEQ/L (3.5-5.1)
[2017-02-24 04:45] LABS: HEMATOCRIT 29.6 % (35.0-46.0); MEAN CELL VOLUME 85.9 FL (80.0-100.0); MEAN CORPUSCULAR HEMOGLOBIN 28.3 PG (27.0-34.0); MEAN CORPUSCULAR HGB CONC 32.9 % (32.0-36.0); PLATELET COUNT 206 TH/MM3 (150-450); RED BLOOD COUNT 3.44 MIL/MM3 (4.00-5.30); RED CELL DISTRIBUTION WIDTH 14.3 % (11.6-17.2); REVIEW FLAG FINAL
[2017-02-24 04:46] VITALS: BP 117/66; PULSE 68; RESP 18; TEMP 97.4; O2SAT 95
[2017-02-24] MEDS: SUCRALFATE 1 GM/10 ML CUP PO SCH ×4 (05:21→19:40)
[2017-02-24] MEDS: MORPHINE SULFATE 4 MG/ML INJ IV PRN ×3 (05:26→11:16)
[2017-02-24 08:00] VITALS: BP 110/70; PULSE 61; RESP 17; TEMP 97; O2SAT 96
[2017-02-24] MEDS: PANTOPRAZOLE SODIUM 40 MG VIAL IV PUSH SCH ×2 (09:00→21:00)
[2017-02-24] MEDS: SODIUM CHLORIDE 0.9% FLUSH 10 ML FLUSH IV FLUSH SCH ×2 (09:00→21:00)
[2017-02-24] MEDS: DOCUSATE SODIUM 100 MG CAP PO SCH ×2 (09:28→19:40)
[2017-02-24] MEDS: PANTOPRAZOLE SOD 40 MG DELAYED RELEASE TAB PO SCH ×2 (09:28→19:40)
[2017-02-24] MEDS ORDERED: POTASSIUM CHLOR 20 MEQ PREMIX 100 ML IV SCH ×2 (11:00→12:15)
[2017-02-24] MEDS: 1/2 NS + KCL 20 MEQ INJ 1,000 ML IV SCH (11:16)
[2017-02-24 12:00] VITALS: BP 109/68; PULSE 62; RESP 17; TEMP 95.9; O2SAT 98
[2017-02-24] MEDS ORDERED: POTASSIUM CHLORIDE 20 MEQ PWD PACKET PO ONE (15:00)
--- NOTE | 2017-02-24 15:01 | HHI.PR ---
Subjective Subjective Notes POD#2 Exploratory Ex Lap with small hernia repair and lysis of adhesions Sitting up in chair, somewhat more comfortable today. Patient states that the pain is starting to improve Denies nausea or vomiting. Did not tolerate starting full liquids yesterday. Starting to pass flatus Objective Vitals/I&O Vital Signs Date Time Temp Pulse Resp B/P Pulse Ox O2 Delivery O2 Flow Rate FiO2 02/24/17 12:00 95.9 62 17 109/68 98 02/22/17 14:00 Nasal Cannula 3 Labs Laboratory Tests Test 02/24/17 03:38 White Blood Count 5.0 Red Blood Count 3.44 Hemoglobin 9.7 Hematocrit 29.6 Mean Corpuscular Volume 85.9 Mean Corpuscular Hemoglobin 28.3 Mean Corpuscular Hemoglobin 32.9 Concent Red Cell Distribution Width 14.3 Platelet Count 206 Mean Platelet Volume 7.6 Sodium Level 146 Potassium Level 3.1 Chloride Level 110 Carbon Dioxide Level 28.7 Anion Gap 7 Blood Urea Nitrogen 5 Creatinine 0.56 Estimat Glomerular Filtration 117 Rate Random Glucose 84 Calcium Level 8.0 Magnesium Level 1.9 Cardiovascular: Regular Lungs: Clear Abdomen: Post-op tenderness Extremities: Perfused Wound Wound : Wound Location: Abdomen Appearance: Clean & Dry A/P Assessment and Plan Serum K+ 3.1 - replace with 40 MEQ PO as patient can not tolerate IV Continue with frequent position change and ambulation Will advance to full/thick liquids as tolerated today D/C IV pain meds, transition to oral The exam, history, and the medical decision-making described in the above note were completed with the assistance of the mid-level provider. I reviewed and agree with the findings presented. I attest that I had a [id number] encounter with the patient on the same day, and personally performed and documented my assessment and findings in the medical record. Discharge Planning D/C home tomorrow Patient will remain on full liquids at home Kerry Guy February 24, 2017 15:01 Ok Rosen MD March 02, 2017 09:36
[2017-02-24 16:00] VITALS: BP 111/70; PULSE 71; RESP 18; TEMP 96.2; O2SAT 97
[2017-02-24 20:00] VITALS: BP 129/85; PULSE 68; RESP 19; TEMP 97.1; O2SAT 97
[2017-02-25] VITALS: BP 112/80; PULSE 60; RESP 19; TEMP 96.6; O2SAT 97
[2017-02-25] MEDS: ACETAMINOPHEN/HYDROcodone 325 MG/5 MG TAB PO PRN ×3 (02:33→10:24)
[2017-02-25] MEDS: 1/2 NS + KCL 20 MEQ INJ 1,000 ML IV SCH ×2 (02:36→08:54)
[2017-02-25] MEDS: SUCRALFATE 1 GM/10 ML CUP PO SCH ×2 (06:00→10:24)
[2017-02-25 08:00] VITALS: BP 122/76; PULSE 63; RESP 19; TEMP 97.4; O2SAT 97
[2017-02-25] MEDS: PANTOPRAZOLE SODIUM 40 MG VIAL IV PUSH SCH (08:52)
[2017-02-25] MEDS: DOCUSATE SODIUM 100 MG CAP PO SCH (08:53)
[2017-02-25] MEDS: PANTOPRAZOLE SOD 40 MG DELAYED RELEASE TAB PO SCH (08:53)
[2017-02-25] MEDS: SODIUM CHLORIDE 0.9% FLUSH 10 ML FLUSH IV FLUSH SCH (08:53)
--- NOTE | 2017-02-25 11:47 | HHI.PR ---
Subjective Subjective Notes POD#3 Exploratory Ex Lap with small hernia repair and lysis of adhesions Sitting up in chair, feels better today. Patient states that the pain continues to improve. Denies nausea or vomiting. Tolerating full liquids with carafate. Had a BM today Objective Vitals/I&O Vital Signs Date Time Temp Pulse Resp B/P Pulse Ox O2 Delivery O2 Flow Rate FiO2 02/25/17 11:36 18 02/25/17 08:00 97.4 63 122/76 97 02/22/17 14:00 Nasal Cannula 3 Cardiovascular: Regular Lungs: Clear Abdomen: Post-op tenderness Extremities: Perfused Narrative Exam Still some distention to abdomen but much improved from previous exam. Belly soft Wound Wound : Wound Location: Abdomen Appearance: Clean & Dry A/P Assessment and Plan Continue on full liquids and start protein shakes tomorrow. Continue with frequent ambulation The exam, history, and the medical decision-making described in the above note were completed with the assistance of the mid-level provider. I reviewed and agree with the findings presented. I attest that I had a [id number] encounter with the patient on the same day, and personally performed and documented my assessment and findings in the medical record. Discharge Planning D/C home today Kerry Guy February 25, 2017 11:47 Ok Rosen MD March 02, 2017 09:37
[2017-02-25 12:00] VITALS: BP 107/64; PULSE 69; RESP 18; TEMP 97.3; O2SAT 97
--- NOTE | 2017-04-15 00:03 | MP ---
cc: TAMMY RUSSELL DATE OF SURGERY 02/22/17 PREOPERATIVE DIAGNOSIS Abdominal pain, questionable internal hernia. POSTOPERATIVE DIAGNOSIS Internal hernia at Fernandez's space and enteroenterostomy. SURGEON Tammy Russell MD ANESTHESIA General endotracheal anesthesia. ESTIMATED BLOOD LOSS Scant. FINDINGS Fernandez defect and defect at enteroenterostomy. No obstruction identified. SPECIMENS None. COMPLICATIONS None. OPERATION The patient was brought to the operating room, placed on the operating table in supine position. Bilateral sequential inflation device placed on lower extremity, general anesthesia instituted. Gambino catheter placed. Antibiotics initiated. The abdomen was prepped and draped sterilely. A point in the epigastric region anesthetized with 0.25% Marcaine with epinephrine. Skin incision was made, 5 mm OptiView port placed under direct vision and pneumoperitoneum was created. On direct vision two 5 mm left upper quadrant and 5 mm right upper quadrant port was placed. Prior to placement of all ports the skin and peritoneum anesthetized with 0.25% Marcaine with epinephrine. The abdominal cavity was inspected. Findings as above. Adhesions of omentum to the abdominal wall was sharply. Small bowel adhesions to the abdominal wall was sharply as well. The defect at Fernandez's space was closed using 2-0 silk suture closing down the transverse mesocolon around the Capo limb. This was done in a simple interrupted manner. Care was taken not to encroach on the Capo limb. The defect identified at the enteroenterostomy was closed as well. This was performed using a 2-0 silk suture. This was closed in a running manner. At this point the operation was terminated. CO2 released. All ports removed. All skin incisions were closed with 4-0 Monocryl. The abdominal wall was cleaned and a sterile dressing placed. The patient was awakened and taken to the recovery room. MD GEORGE Mcfarland/ANUJA /1:58 PM /12:01 AM
== END 2017-02-25 12:54 | disposition home or self-care (01) | DRG 331 ==
LOC: HSDC 06:42 → HSDI 11:49 → INTOOBSV 11:49 → OBSVTOIN 11:49 → N07A 14:51 → OBSVTOIN 02-23 11:52 → UNDODISIN 02-25 12:54
PROVIDERS: ADMIT Surgery; ATTEND Surgery
PROC: 0WQF4ZZ Repair Abdominal Wall, Percutaneous Endoscopic Approach (ICD-10-PCS; 2017-02-22)
PROC: 0DNS4ZZ (ICD-10-PCS; 2017-02-22)
PROC: 0DN84ZZ Release Small Intestine, Percutaneous Endoscopic Approach (ICD-10-PCS; 2017-02-22)
PROC: 0DQ84ZZ Repair Small Intestine, Percutaneous Endoscopic Approach (ICD-10-PCS; principal; 2017-02-22 09:37)
DX: K46.9 Unspecified abdominal hernia without obstruction or gangrene (principal); E66.9 Obesity, unspecified; Z68.31 Body mass index [BMI] 31.0-31.9, adult; Z98.84 Bariatric surgery status
CPT/HCPCS: 80048; 83735; 85027; 94150; C9113; J0131; J1100; J1170; J2250; J2270; J2370; J2405; J2550; J2765; J3010; J3480; J7030; J7120

== ENCOUNTER 2017-04-10 18:16 | Emergency (ER) | payer OTHER ==
[~2017-04-10 18:16] MED LIST changes: -HYDR1SOL3 PO
[2017-04-10 18:20] VITALS: BP 156/92; PULSE 101; RESP 18; TEMP 98.6; O2SAT 98
--- NOTE | 2017-04-10 18:48 | PD ---
HPI . Leg cramping and mild chest pain Chief Complaint: Cardiac Complaint Time Seen by Provider: 18:48 Travel History International Travel<30 days: No Contact w/Intl Traveler<30days: No Traveled to known affect area: No History of Present Illness HPI 46-year-old female with past medical history of migraines and iron deficiency anemia here with primary complaint of leg cramping. Patient tells me for the past several days she's been experiencing increased amount of leg cramping that has kept her up at night. She rates the cramping as severe. She also tells me that she has some very mild chest pain located in the sternum without radiation elsewhere and rated as 4/10. She has previously experienced similar chest pain and was told that she had iron deficiency anemia. She thinks this is what's going on with her again. She also reports having a headache that is similar to her migraines and causing her blurry vision and making her eyes hurt. This is not the most severe headache of her life. I have reviewed her records she was most recently in the hospital on February 23, 2017 for an exploratory laparoscopy secondary to vomiting and abdominal pain. Patient was found to have a hernia and ulcer and was treated with total resolution. At that time her hemoglobin was 9.7 her potassium was 3.1. I've reviewed her records and her potassium is always on the lower end. She also reports having a cardiac cath in 2013 and was told everything was normal. She has no cardiac history. PFSH Past Medical History Anemia: Yes (LOW IRON) Blood Disorders: No Anxiety: No Depression: No Cancer: No Cardiac Catheterization: Yes (X 1 - NO STENTS PLACED) Cardiovascular Problems: Yes (CARDIAC CATH) Diabetes: No Diminished Hearing: No Endocrine: No Gastrointestinal Disorders: No Glaucoma: No Genitourinary: No Hepatitis: No Hiatal Hernia: No Hypertension: Yes (HISTORY OF) Immune Disorder: No Implanted Vascular Access Dvce: No Musculoskeletal: No Neurologic: Yes (LUMBAR DISK HERNIATION) Psychiatric: No Reproductive: No Respiratory: No Immunizations Current: No Thyroid Disease: No : 4 Para: 4 Miscarriage: 0 : 0 Tubal Ligation: Yes Past Surgical History Abdominal Surgery: Yes ( GASTRIC BYPASS 11/03/2010) AICD: No Body Medical Devices: NONE Cardiac Surgery: Yes Section: Yes (X 2) Cholecystectomy: Yes (03/03/11) Ear Surgery: No Endocrine Surgery: No Eye Surgery: No Genitourinary Surgery: No Gynecologic Surgery: Yes (C SECTION X 2, TUBAL LIG., HYSTERECTOMY) Hysterectomy: Yes Joint Replacement: No Neurologic Surgery: No Oral Surgery: No Pacemaker: No Thoracic Surgery: No Other Surgery: Yes (GASTRIC BYPASS 11/03/2010) Social History Alcohol Use: Yes Tobacco Use: No Substance Use: No Allergies-Medications (Allergen,Severity, Reaction): Coded Allergies: No Known Allergies (Unverified , 04/10/17) Reported Meds & Prescriptions Reported Meds & Active Scripts Active Tylenol (Acetaminophen) 325 Mg Tab 650 Mg PO Q6H PRN 5 Days Reported Multiple Vitamin 1 Tab 1 Tab PO DAILY Review of Systems Cardiovascular: Positive: Chest Pain or Discomfort Musculoskeletal: Positive: Cramping Neurologic: Positive: Headache Physical Exam Narrative GENERAL: AAO x 3, no acute distress, Well-nourished, well-developed patient. SKIN: Warm and dry. No visible rashes or bruising. HEAD: Normocephalic and atraumatic. EYES: No scleral icterus. No injection or drainage. EOM intact, PERRLA ENT: No nasal drainage noted. Mucous membranes pink. Airway patent. NECK: Supple, trachea midline. No JVD. CARDIOVASCULAR: Regular rate and rhythm without murmurs, gallops, or rubs. RESPIRATORY: Breath sounds equal bilaterally. No accessory muscle use. No rhonchi or rales. GASTROINTESTINAL: Abdomen soft, non-tender, nondistended. EXTREMITIES: No cyanosis or edema. No tenderness to lower extremities with palpation. BACK: Nontender without obvious deformity. No CVA tenderness. NEURO: CN II-12 intact, slaughterer religious ritual strength normal b/l, UE and LE 5/5, no focal deficits PSYCH: AAO x 3, normal affect. Data Data Last Documented VS Vital Signs Date Time Temp Pulse Resp B/P Pulse Ox O2 Delivery O2 Flow Rate FiO2 04/10/17 20:42 81 18 140/82 100 Room Air 04/10/17 18:20 98.6 Orders Ckmb (Isoenzyme) Profile (04/10/17 18:56) Complete Blood Count With Diff (04/10/17 18:56) Comprehensive Metabolic Panel (04/10/17 18:56) Magnesium (Mg) (04/10/17 18:56) Prothrombin Time / Inr (Pt) (04/10/17 18:56) Act Partial Throm Time (Ptt) (04/10/17 18:56) Troponin I (04/10/17 18:56) Chest, Single Ap (04/10/17 18:56) Ecg Monitoring (04/10/17 18:56) Bilateral Bp Monitoring (04/10/17 18:56) Iv Access Insert/Monitor (04/10/17 18:56) Oximetry (04/10/17 18:56) Oxygen Administration (04/10/17 18:56) Sodium Chloride 0.9% Flush (Ns Flush) (04/10/17 19:00) Ct Pulmonary Angiogram (04/10/17 18:56) Prochlorperazine Inj (Compazine Inj) (04/10/17 19:00) Iohexol 350 Inj (Omnipaque 350 Inj) (04/10/17 20:10) Labs Laboratory Tests Test 04/10/17 19:30 White Blood Count 6.2 TH/MM3 Red Blood Count 4.09 MIL/MM3 Hemoglobin 11.6 GM/DL Hematocrit 34.5 % Mean Corpuscular Volume 84.5 FL Mean Corpuscular Hemoglobin 28.4 PG Mean Corpuscular Hemoglobin 33.6 % Concent Red Cell Distribution Width 14.9 % Platelet Count 267 TH/MM3 Mean Platelet Volume 7.6 FL Neutrophils (%) (Auto) 65.5 % Lymphocytes (%) (Auto) 24.5 % Monocytes (%) (Auto) 7.8 % Eosinophils (%) (Auto) 1.7 % Basophils (%) (Auto) 0.5 % Neutrophils # (Auto) 4.0 TH/MM3 Lymphocytes # (Auto) 1.5 TH/MM3 Monocytes # (Auto) 0.5 TH/MM3 Eosinophils # (Auto) 0.1 TH/MM3 Basophils # (Auto) 0.0 TH/MM3 CBC Comment DIFF FINAL Differential Comment Prothrombin Time 10.9 SEC Prothromb Time International 1.0 RATIO Ratio Activated Partial 26.0 SEC Thromboplast Time Sodium Level 139 MEQ/L Potassium Level 3.6 MEQ/L Chloride Level 109 MEQ/L Carbon Dioxide Level 22.9 MEQ/L Anion Gap 7 MEQ/L Blood Urea Nitrogen 9 MG/DL Creatinine 0.81 MG/DL Estimat Glomerular Filtration 76 ML/MIN Rate Random Glucose 96 MG/DL Calcium Level 8.3 MG/DL Magnesium Level 2.1 MG/DL Total Bilirubin 0.2 MG/DL Aspartate Amino Transf 22 U/L (AST/SGOT) Alanine Aminotransferase 30 U/L (ALT/SGPT) Alkaline Phosphatase 74 U/L Total Creatine Kinase 47 U/L Troponin I LESS THAN 0.02 NG/ML Total Protein 6.4 GM/DL Albumin 3.1 GM/DL MDM Medical Decision Making Medical Screen Exam Complete: Yes Emergency Medical Condition: Yes Medical Record Reviewed: Yes Differential Diagnosis Hypokalemia, atypical chest pain, ACS, pulmonary embolism, migraine, tension headache Narrative Course 46-year-old female here with complaints of leg cramping, mild chest pain and headache. IV access was obtained, labs and imaging have been ordered. I provided her with some Compazine here in the emergency department for headache. She denies any nausea. Last Impressions Chest X-Ray 04/10/171855 Signed Impressions: Service Date/Time: Monday, April 10, 2017 19:09 - CONCLUSION: No acute disease. Morteza Fraga MD CT Angiography 04/10/171855 Signed Impressions: Service Date/Time: Monday, April 10, 2017 20:05 - CONCLUSION: No evidence of pulmonary embolism. Degenerative changes throughout the thoracic spine. Morteza Fraga MD Laboratory Tests Test 04/10/17 19:30 White Blood Count 6.2 TH/MM3 Red Blood Count 4.09 MIL/MM3 Hemoglobin 11.6 GM/DL Hematocrit 34.5 % Mean Corpuscular Volume 84.5 FL Mean Corpuscular Hemoglobin 28.4 PG Mean Corpuscular Hemoglobin 33.6 % Concent Red Cell Distribution Width 14.9 % Platelet Count 267 TH/MM3 Mean Platelet Volume 7.6 FL Neutrophils (%) (Auto) 65.5 % Lymphocytes (%) (Auto) 24.5 % Monocytes (%) (Auto) 7.8 % Eosinophils (%) (Auto) 1.7 % Basophils (%) (Auto) 0.5 % Neutrophils # (Auto) 4.0 TH/MM3 Lymphocytes # (Auto) 1.5 TH/MM3 Monocytes # (Auto) 0.5 TH/MM3 Eosinophils # (Auto) 0.1 TH/MM3 Basophils # (Auto) 0.0 TH/MM3 CBC Comment DIFF FINAL Differential Comment Prothrombin Time 10.9 SEC Prothromb Time International 1.0 RATIO Ratio Activated Partial 26.0 SEC Thromboplast Time Sodium Level 139 MEQ/L Potassium Level 3.6 MEQ/L Chloride Level 109 MEQ/L Carbon Dioxide Level 22.9 MEQ/L Anion Gap 7 MEQ/L Blood Urea Nitrogen 9 MG/DL Creatinine 0.81 MG/DL Estimat Glomerular Filtration 76 ML/MIN Rate Random Glucose 96 MG/DL Calcium Level 8.3 MG/DL Magnesium Level 2.1 MG/DL Total Bilirubin 0.2 MG/DL Aspartate Amino Transf 22 U/L (AST/SGOT) Alanine Aminotransferase 30 U/L (ALT/SGPT) Alkaline Phosphatase 74 U/L Total Creatine Kinase 47 U/L Troponin I LESS THAN 0.02 NG/ML Total Protein 6.4 GM/DL Albumin 3.1 GM/DL Labs have been reviewed. There are no old for abnormalities. CT angio negative for pulmonary emboli. Chest x-ray negative. Cardiac enzymes negative. Patient had cardiac workup a few years ago with cath and was negative for any findings. She denies any cardiac history. I do not suspect cardiac etiology. Patient's potassium is normal along with a normal H&H. It appears that she is having a migraine. I did check with the patient and her symptoms are improved. She tells me the headache is almost gone. She still reports leg cramping, which is not explained by any of the normal findings. She is currently off of all medications. I have discussed with Dr. Suazo, we recommend outpatient f/u and Tylenol PRN pain. I discussed my recommendations with the patient and she was in agreement with them. Patient verbalized understanding of instructions, questions were answered, and thanked me for their care. I advised them if their condition worsens, please return to the nearest emergency room for further care. Diagnosis Primary Impression: Leg cramp Additional Impression: Headache Qualified Code: R51 - Acute nonintractable headache, unspecified headache type Patient Instructions: General Instructions Additional Instructions: Follow-up with your primary care provider as we discussed. Scripts Acetaminophen (Tylenol)325 Mg [id number] Mg PO Q6H PRN (PAIN SCALE 1 TO 10) 5 Days Ref 0 Prov:Arnoldo South MD 04/10/17 Disposition: 01 DISCHARGE HOME Condition: Stable Dorothea Cutler Apr 10, 2017 18:48
[2017-04-10] MEDS ORDERED: PROCHLORPERAZINE INJ 10 MG/2 ML VIAL IV PUSH ONE (19:00)
[2017-04-10] MEDS ORDERED: SODIUM CHLORIDE 0.9% FLUSH 10 ML FLUSH IVF PRN (19:00)
--- NOTE | 2017-04-10 19:16 | RADRPT ---
EXAM DATE/TIME: 04/10/2017 19:09 [facility] COMPARISON: CHEST SINGLE AP, September 04, 2015, 11:32. INDICATIONS : Chest pain. MEDICAL HISTORY : None. SURGICAL HISTORY : None. ENCOUNTER: Initial ACUITY: 1 day PAIN SCORE: 0/10 LOCATION: Bilateral chest FINDINGS: A single view of the chest demonstrates the lungs to be symmetrically aerated without evidence of mas s, infiltrate or effusion. The cardiomediastinal contours are unremarkable. Osseous structures are intact. CONCLUSION: No acute disease. Morteza Fraga MD on April 10, 2017 at 19:13 Board Certified Radiologist. This report was verified electronically.
[2017-04-10 19:56] LABS: BASOPHIL % 0.5 % (0.0-2.0); EOSINOPHIL # 0.1 TH/MM3 (0-0.4); EOSINOPHIL % 1.7 % (0.0-4.0); HEMATOCRIT 34.5 % (35.0-46.0); HEMO FLAGS DIFF FINAL; LYMPH % 24.5 % (9.0-44.0); LYMPHOCYTE # 1.5 TH/MM3 (1.0-4.8); MEAN CELL VOLUME 84.5 FL (80.0-100.0); MEAN CORPUSCULAR HEMOGLOBIN 28.4 PG (27.0-34.0); MEAN CORPUSCULAR HGB CONC 33.6 % (32.0-36.0); MONO % 7.8 % (0.0-8.0); NEUT % 65.5 % (16.0-70.0); PLATELET COUNT 267 TH/MM3 (150-450); RED BLOOD COUNT 4.09 MIL/MM3 (4.00-5.30); RED CELL DISTRIBUTION WIDTH 14.9 % (11.6-17.2); WHITE BLOOD COUNT 6.2 TH/MM3 (4.0-11.0)
[2017-04-10 20:07] LABS: PROTHROMBIN TIME - PATIENT 10.9 SEC (9.8-11.6)
[2017-04-10] MEDS ORDERED: IOHEXOL 350 MG/ML 10 ML VIAL (for RAD DIAG) IV ONE (20:10)
--- NOTE | 2017-04-10 20:21 | RADRPT ---
EXAM DATE/TIME: 04/10/2017 20:05 [facility] COMPARISON: No previous studies available for comparison. INDICATIONS : Shortness of breath with chest tightness. IV CONTRAST: 70 cc Omnipaque 350 (iohexol) IV RADIATION DOSE: 9.24 CTDIvol (mGy) MEDICAL HISTORY : Cardiovascular disease. Hypertension. Meningitis. SURGICAL HISTORY : Hysterectomy. Cholecystectomy.Gastric bypass. ENCOUNTER: Initial ACUITY: 1 day PAIN SCALE: 3/10 LOCATION: chest TECHNIQUE: Volumetric scanning of the chest was performed using a pulmonary embolism protocol MIP images were re constructed. Using automated exposure control and adjustment of the mA and/or kV according to patien t size, radiation dose was kept as low as reasonably achievable to obtain optimal diagnostic quality images. DICOM format image data is available electronically for review and comparison. FINDINGS: PULMONARY ARTERIES: No filling defects are seen in the pulmonary arteries through the segmental level. LUNGS: There is no consolidation or pneumothorax . No concerning pulmonary nodule is visualized. PLEURAE: There is no pleural thickening or pleural effusion. MEDIASTINUM: There is good visualization of the great vessels of the middle mediastinum. No evidence of mediastin al or hilar adenopathy/mass. MUSCULOSKELETAL: Degenerative changes are noted throughout the thoracic spine. MISCELLANEOUS: The visualized upper abdominal organs demonstrate no acute abnormality. Patient is status post gastri c surgery. CONCLUSION: No evidence of pulmonary embolism. Degenerative changes throughout the thoracic spine . Morteza Fraga MD on April 10, 2017 at 20:16 Board Certified Radiologist. This report was verified electronically.
[2017-04-10 20:24] LABS: ANION GAP 7 MEQ/L (5-15); AST (GOT) 22 U/L (15-37); BICARBONATE 22.9 MEQ/L (21.0-32.0); BLOOD UREA NITROGEN 9 MG/DL (7-18); CHLORIDE 109 MEQ/L (98-107); GLOMERULAR FILTRATION RATE 76 ML/MIN (>89); MAGNESIUM 2.1 MG/DL (1.5-2.5); POTASSIUM 3.6 MEQ/L (3.5-5.1); SODIUM (NA) 139 MEQ/L (136-145)
[2017-04-10 20:25] LABS: ALT (GPT) 30 U/L (10-53)
[2017-04-10 20:29] LABS: ALKALINE PHOSPHATASE 74 U/L (45-117); TOTAL BILIRUBIN ADULT 0.2 MG/DL (0.2-1.0)
[2017-04-10 20:32] VITALS: O2SAT 98
[2017-04-10 20:33] VITALS: BP 156/92
[2017-04-10 20:42] VITALS: BP 140/82; PULSE 81; RESP 18; O2SAT 100
[2017-04-10 20:51] LABS: CREATINE KINASE 47 U/L (26-192)
[2017-04-10] MEDS ORDERED: TYLE325T PO (20:59)
== END 2017-04-10 22:08 | disposition home or self-care (01) ==
LOC: NEPC 18:16
DX: G47.62 Sleep related leg cramps (principal); R51 Headache; R07.9 Chest pain, unspecified; H53.8 Other visual disturbances; I10 Essential (primary) hypertension; Z79.899 Other long term (current) drug therapy; Z86.2 Personal history of diseases of the blood and blood-forming organs and certain disorders involving the immune mechanism; Z86.79 Personal history of other diseases of the circulatory system; Z87.39 Personal history of other diseases of the musculoskeletal system and connective tissue; Z86.69 Personal history of other diseases of the nervous system and sense organs
CPT/HCPCS: 71010; 71275; 80053; 82550; 83735; 84484; 85025; 85610; 85730; 96374; 99285; J0780; Q9967

== ENCOUNTER 2018-01-08 20:56 | Emergency (ER) | payer OTHER ==
[~2018-01-08 20:56] MED LIST changes: -ONDA4TAB7 SL; -PANT40TA3 PO; -SUCR1S PO; +TYLE325T PO
[2018-01-08] MEDS ORDERED: IOHEXOL 350 MG/ML 10 ML VIAL (for RAD DIAG) IVCONTRAST ONE (20:57)
[2018-01-08 21:10] VITALS: BP 159/75; PULSE 94; RESP 18; TEMP 98.7; O2SAT 99
[2018-01-08] MEDS ORDERED: SODIUM CHLOR 0.9% 1000 ML INJ 1,000 ML IV SCH (22:00)
[2018-01-08] MEDS ORDERED: PROCHLORPERAZINE INJ 10 MG/2 ML VIAL IV PUSH ONE (22:00)
[2018-01-08] MEDS ORDERED: DICYCLOMINE HCL 20 MG/2 ML VIAL IM ONE (22:00)
[2018-01-08 22:06] VITALS: RESP 17; O2SAT 99
[2018-01-08 22:15] LABS: AUTOMATED NEUTROPHIL # 5.3 TH/MM3 (1.8-7.7); BASOPHIL # 0.1 TH/MM3 (0-0.2); BASOPHIL % 0.8 % (0.0-2.0); EOSINOPHIL # 0.1 TH/MM3 (0-0.4); EOSINOPHIL % 0.9 % (0.0-4.0); HEMATOCRIT 34.6 % (35.0-46.0); HEMOGLOBIN 11.8 GM/DL (11.6-15.3); LYMPH % 23.2 % (9.0-44.0); LYMPHOCYTE # 1.8 TH/MM3 (1.0-4.8); MEAN CELL VOLUME 83.2 FL (80.0-100.0); MEAN CORPUSCULAR HEMOGLOBIN 28.3 PG (27.0-34.0); MEAN CORPUSCULAR HGB CONC 34.1 % (32.0-36.0); MEAN PLATELET VOLUME 7.4 FL (7.0-11.0); MONO % 8.3 % (0.0-8.0); MONOCYTE # 0.7 TH/MM3 (0-0.9); NEUT % 66.8 % (16.0-70.0); PLATELET COUNT 304 TH/MM3 (150-450); RED BLOOD COUNT 4.16 MIL/MM3 (4.00-5.30); RED CELL DISTRIBUTION WIDTH 14.6 % (11.6-17.2); WHITE BLOOD COUNT 7.9 TH/MM3 (4.0-11.0)
--- NOTE | 2018-01-08 22:29 | PD ---
HPI Chief Complaint: GI Complaint Time Seen by Provider: 21:44 Travel History International Travel<30 days: No Contact w/Intl Traveler<30days: No Traveled to known affect area: No History of Present Illness HPI This is a 47-year-old female with a history of gastric bypass, peptic ulcer disease, who presents today with complaint epigastric pain with associated nausea vomiting. Patient states that she can hold down liquids however she is unable to hold down solid foods. She reports being able to pass gas. She denies any fevers, chills. There is no reported blood in her emesis or stool. She reports her last bowel movement was this morning without difficulty. Patient also states she has a mild headache from vomiting. PFSH Past Medical History Anemia: Yes (LOW IRON) Blood Disorders: No Anxiety: No Depression: No Cancer: No Cardiac Catheterization: Yes (X 1 - NO STENTS PLACED) Cardiovascular Problems: Yes (CARDIAC CATH) Diabetes: No Diminished Hearing: No Endocrine: No Gastrointestinal Disorders: Yes (MORBID OBESITY, GASTRIC BYPASS OCT 2010) Glaucoma: No Genitourinary: No Hepatitis: No Hiatal Hernia: No Hypertension: Yes (HISTORY OF) Immune Disorder: No Implanted Vascular Access Dvce: No Medical other: Yes (HERNIA, HIRSUTISM, VIT D DEF., MENINGITIS, STAPH) Musculoskeletal: No Neurologic: Yes (LUMBAR DISK HERNIATION) Psychiatric: No Reproductive: No Respiratory: No Immunizations Current: Yes Thyroid Disease: No ?: Not : 4 Para: 4 Miscarriage: 0 : 0 Tubal Ligation: Yes Past Surgical History Abdominal Surgery: Yes ( GASTRIC BYPASS 11/03/2010) AICD: No Body Medical Devices: NONE Cardiac Surgery: Yes Section: Yes (X 2) Cholecystectomy: Yes (03/03/11) Ear Surgery: No Endocrine Surgery: No Eye Surgery: No Genitourinary Surgery: No Gynecologic Surgery: Yes (C SECTION X 2, TUBAL LIG., HYSTERECTOMY) Hysterectomy: Yes Joint Replacement: No Neurologic Surgery: No Oral Surgery: No Pacemaker: No Thoracic Surgery: No Other Surgery: Yes (GASTRIC BYPASS 2010, X2) Social History Alcohol Use: No (DENIES) Tobacco Use: No Substance Use: No Allergies-Medications (Allergen,Severity, Reaction): Coded Allergies: No Known Allergies (Unverified Adverse Reaction, Unknown, 01/08/18) Reported Meds & Prescriptions Reported Meds & Active Scripts Active Protonix (Pantoprazole Sodium) 20 Mg Tab 20 Mg PO DAILY Tylenol (Acetaminophen) 325 Mg Tab 650 Mg PO Q6H PRN 5 Days Reported Multiple Vitamin 1 Tab 1 Tab PO DAILY Review of Systems Except as stated in HPI: all other systems reviewed are Neg General / Constitutional: No: Fever, Chills HENT: Positive: Headaches (Mild bifrontal), No: Neck Pain Cardiovascular: No: Chest Pain or Discomfort, Palpitations Respiratory: No: Cough, Shortness of Breath Gastrointestinal: Positive: Nausea, Vomiting, Abdominal Pain, No: Diarrhea Genitourinary: No: Frequency, Dysuria Musculoskeletal: No: Weakness, Pain Neurologic: Positive: Headache (Mild bifrontal), No: Weakness, Dizziness Physical Exam Narrative GENERAL: Well-developed well-nourished female, in no acute respiratory distress. SKIN: Focused skin assessment warm/dry. HEAD: Atraumatic. Normocephalic. EYES: . No scleral icterus. No injection or drainage. ENT: No nasal bleeding or discharge. Mucous membranes pink and moist. NECK: Trachea midline. Supple. CARDIOVASCULAR: Regular rate and rhythm. No murmur appreciated. RESPIRATORY: No accessory muscle use. Clear to auscultation. Breath sounds equal bilaterally. GASTROINTESTINAL: Abdomen soft, non-tender, nondistended. MUSCULOSKELETAL: No obvious deformities. No clubbing. No cyanosis. No edema. NEUROLOGICAL: Awake and alert. No obvious cranial nerve deficits. Motor grossly within normal limits. Normal speech. PSYCHIATRIC: Appropriate mood and affect; insight and judgment normal. Data Data Last Documented VS Vital Signs Date Time Temp Pulse Resp B/P (MAP) Pulse Ox O2 Delivery O2 Flow Rate FiO2 01/08/18 22:06 17 99 Room Air 01/08/18 21:10 98.7 94 Orders Orders Electrocardiogram (01/08/18 21:47) Complete Blood Count With Diff (01/08/18 21:47) Basic Metabolic Panel (Bmp) (01/08/18 21:47) Ckmb (Isoenzyme) Profile (01/08/18 21:47) Troponin I (01/08/18 21:47) Lipase (01/08/18 21:47) Urinalysis - C+S If Indicated (01/08/18 21:47) Chest, Single Ap (01/08/18 21:47) Abdomen, Upright Only (01/08/18 21:47) Iv Access Insert/Monitor (01/08/18 21:47) Ecg Monitoring (01/08/18 21:47) Oximetry (01/08/18 21:47) Sodium Chlor 0.9% 1000 Ml Inj (Ns 1000 M (01/08/18 22:00) Prochlorperazine Inj (Compazine Inj) (01/08/18 22:00) Dicyclomine Inj (Bentyl Inj) (01/08/18 22:00) Ct Abd/Pel W Iv Contrast(Rout) (01/08/18 22:29) Oral Contrast - Adult (01/08/18 22:32) Diatrizoate Liq ( [place] Liq) (01/08/18 22:46) Iohexol 350 Inj (Omnipaque 350 Inj) (01/08/18 20:57) Labs Laboratory Tests Test 01/08/18 21:55 White Blood Count 7.9 TH/MM3 Red Blood Count 4.16 MIL/MM3 Hemoglobin 11.8 GM/DL Hematocrit 34.6 % Mean Corpuscular Volume 83.2 FL Mean Corpuscular Hemoglobin 28.3 PG Mean Corpuscular Hemoglobin Concent 34.1 % Red Cell Distribution Width 14.6 % Platelet Count 304 TH/MM3 Mean Platelet Volume 7.4 FL Neutrophils (%) (Auto) 66.8 % Lymphocytes (%) (Auto) 23.2 % Monocytes (%) (Auto) 8.3 % Eosinophils (%) (Auto) 0.9 % Basophils (%) (Auto) 0.8 % Neutrophils # (Auto) 5.3 TH/MM3 Lymphocytes # (Auto) 1.8 TH/MM3 Monocytes # (Auto) 0.7 TH/MM3 Eosinophils # (Auto) 0.1 TH/MM3 Basophils # (Auto) 0.1 TH/MM3 CBC Comment DIFF FINAL Differential Comment Blood Urea Nitrogen 10 MG/DL Creatinine 0.62 MG/DL Random Glucose 92 MG/DL Calcium Level 8.4 MG/DL Sodium Level 145 MEQ/L Potassium Level 3.9 MEQ/L Chloride Level 113 MEQ/L Carbon Dioxide Level 23.5 MEQ/L Anion Gap 9 MEQ/L Estimat Glomerular Filtration Rate 103 ML/MIN Total Creatine Kinase 60 U/L Troponin I LESS THAN 0.02 NG/ML Lipase 252 U/L [facility] Medical Decision Making Medical Screen Exam Complete: Yes Emergency Medical Condition: Yes Differential Diagnosis Esophageal stricture versus bowel obstruction versus hiatal hernia Narrative Course 47-year-old female history gastric bypass, previous hernias, presents today with complaints of epigastric pain with associated nausea vomiting. Patient states she is able to hold down liquids but when she tries to eat solids she vomits. No reported blood in her vomit or her stool. She is passing gas and had a bowel movement yesterday morning. There is no reported fevers, chills. CT scan shows no evidence of acute inflammation or inflammatory process. There is no obstructive pattern. She does have findings consistent with her gastric bypass surgery. Labs are within normal limits. She will be discharged with a prescription for Protonix. She has been given a dose of Maalox here in the [facility] department. She will follow-up with Dr. Navi Duval, her surgeon from the gastric bypass today. She is instructed to call for an appointment. She also be instructed to have bland diet with thickened liquids and advance as tolerated. Diagnosis Primary Impression: Abdominal pain Additional Impressions: Nausea & vomiting History of gastric bypass Additional Instructions: [place] diet. Thickened liquids and advance as tolerated. Follow-up with Dr. Duval today or tomorrow. Return if feeling worse. Med/Other Pt SpecificInfo: Prescription(s) given Scripts Pantoprazole (Protonix) 20 Mg Tab 20 MG PO DAILY for Reflux, #30 TAB 0 Refills Prov: Alex Hernandez MD 01/09/18 Disposition: DISCHARGE HOME Condition: Stable Alex Hernandez MD Jan 08, 2018 22:29
--- NOTE | 2018-01-08 22:34 | RADRPT ---
EXAM DATE/TIME: 01/08/2018 21:58 [facility] COMPARISON: No previous studies available for comparison. INDICATIONS : Bilateral upper abdominal pain for twenty-four hours. MEDICAL HISTORY : Cardiovascular disease. Hypertension SURGICAL HISTORY : Hysterectomy. Cholecystectomy. Gastric bypass. Multiple hernia repairs ENCOUNTER: Initial ACUITY: 1 day PAIN SCORE: 10/10 LOCATION: Bilateral upper quadrant abdomen FINDINGS: A single erect view of the abdomen demonstrates the lower lungs to be clear. No evidence of free int raperitoneal gas. The visualized bowel loops are unremarkable. CONCLUSION: Negative for free air. Lung base is clear Philip Cerda MD FACR on January 08, 2018 at 22:31 Board Certified Radiologist. This report was verified electronically.
--- NOTE | 2018-01-08 22:35 | RADRPT ---
EXAM DATE/TIME: 01/08/2018 21:56 [facility] COMPARISON: CHEST SINGLE AP, April 10, 2017, 19:09. INDICATIONS : Bilateral upper abdominal pain for twenty-four hours. MEDICAL HISTORY : Cardiovascular disease. Hypertension SURGICAL HISTORY : Hysterectomy. Cholecystectomy. Gastric bypass. Multiple hernia repair. ENCOUNTER: Initial ACUITY: 1 day PAIN SCORE: 10/10 LOCATION: Bilateral lower chest FINDINGS: A single view of the chest demonstrates the lungs to be symmetrically aerated without evidence of mas s, infiltrate or effusion. The cardiomediastinal contours are unremarkable. Osseous structures are intact. CONCLUSION: No acute disease. Philip Cerda MD FACR on January 08, 2018 at 22:32 Board Certified Radiologist. This report was verified electronically.
[2018-01-08 22:42] LABS: BICARBONATE 23.5 MEQ/L (21.0-32.0); BLOOD UREA NITROGEN 10 MG/DL (7-18); CALCIUM 8.4 MG/DL (8.5-10.1); CHLORIDE 113 MEQ/L (98-107); CREATININE 0.62 MG/DL (0.50-1.00); GLOMERULAR FILTRATION RATE 103 ML/MIN (>89); GLUCOSE,RANDOM 92 MG/DL (74-106); SODIUM (NA) 145 MEQ/L (136-145)
[2018-01-08] MEDS ORDERED: DIATRIZOATE MEGLUM/DIATRIZOATE SOD 9 ML CUP ONE (22:46)
[2018-01-08 22:47] LABS: TROPONIN I LESS THAN 0.02 NG/ML (0.02-0.05)
--- NOTE | 2018-01-09 00:28 | RADRPT ---
EXAM DATE/TIME: 01/09/2018 00:02 [facility] COMPARISON: CT ABDOMEN & PELVIS W CONTRAST, February 08, 2017, 13:57. INDICATIONS : Abdominal pain; possible bowel obstruction. IV CONTRAST: 95 cc Omnipaque 350 (iohexol) IV ORAL CONTRAST: Prescribed oral contrast ingested. RADIATION DOSE: 10.92 CTDIvol (mGy) MEDICAL HISTORY : Cardiovascular disease. SURGICAL HISTORY : Cholecystectomy. Gastric bypass. Hysterectomy. ENCOUNTER: Initial ACUITY: 1 day PAIN SCALE: 7/10 LOCATION: Bilateral abdomen TECHNIQUE: Volumetric scanning of the abdomen and pelvis was performed. Using automated exposure control and ad justment of the mA and/or kV according to patient size, radiation dose was kept as low as reasonably achievable to obtain optimal diagnostic quality images. DICOM format image data is available electro nically for review and comparison. FINDINGS: LOWER LUNGS: The visualized lower lungs are clear. LIVER: Homogeneous density without lesion. There is no dilation of the biliary tree. Cholecystectomy clips. SPLEEN: Normal size without lesion. PANCREAS: Within normal limits. KIDNEYS: Normal in size and shape. There is no mass, stone or hydronephrosis. ADRENAL GLANDS: Within normal limits. VASCULAR: There is no aortic aneurysm. BOWEL/MESENTERY: Gastric bypass. No acute inflammatory process.. There is no free intraperitoneal air or fluid. ABDOMINAL WALL: Within normal limits. RETROPERITONEUM: There is no lymphadenopathy. BLADDER: No wall thickening or mass. REPRODUCTIVE: Within normal limits. INGUINAL: There is no lymphadenopathy or hernia. MUSCULOSKELETAL: Within normal limits for patient age. CONCLUSION: 1. No acute inflammatory process. 2. Gastric bypass and previous cholecystectomy. Oren Barajas MD on January 09, 2018 at 0:24 Board Certified Radiologist. This report was verified electronically.
[2018-01-09] MEDS ORDERED: PANT20 PO (01:12)
[2018-01-09 01:37] LABS: BILIRUBIN, URINE NEG (NEG); BLOOD, URINE NEG (NEG); GLUCOSE,URINE NEG (NEG); KETONE, URINE NEG (NEG); MUCUS URINE FEW /lpf (OCC); NITRITE,URINE NEG (NEG); SQUAMOUS EPITHELIAL CELL URINE 1 /hpf (0-5); URINE COLOR LIGHT-YELLOW (YELLW/STRAW); URINE LEUKOCYTE ESTERASE NEG (NEG)
[2018-01-09] MEDS ORDERED: ALUMINUM/MAGNESIUM/SIMETH 30 ML CUP PO ONE (02:00)
--- NOTE | 2018-01-10 00:19 | EKG ---
Date Performed: 01/08/2018 Time Performed: 22:13:01 PTAGE: 47 years EKG: Sinus rhythm NORMAL ECG PREVIOUS TRACING : 02/08/2017 13.06 DOCTOR: Ruben Santiago Interpretating Date/Time 01/10/2018 00:09:35
== END 2018-01-09 02:28 | disposition home or self-care (01) ==
LOC: NEPE 20:56
DX: R10.13 Epigastric pain (principal); R11.2 Nausea with vomiting, unspecified; R51 Headache; D64.9 Anemia, unspecified; I10 Essential (primary) hypertension; L68.0 Hirsutism; E55.9 Vitamin D deficiency, unspecified; Z98.84 Bariatric surgery status; Z87.19 Personal history of other diseases of the digestive system
CPT/HCPCS: 71045; 74018; 74177; 80048; 81001; 82550; 83690; 84484; 85025; 93005; 96361; 96372; 96374; 99285; J0500; J0780; J7030; Q9963; Q9967